=== PATIENT | male | born 1955 | race Caucasian/White ===

== ENCOUNTER → 2017-11-18 | Outpatient (CLI) | payer OTHER ==
[~2017-11-18] MED LIST: AMOX TR-K CLV1 EAC4 PO; ASPIR 8181 MG PO; CLONAZEPAM 1 MG1 M1 PO; COZAAR 50 MG TA50 M2 PO; CYMBALTA60 MG PO; DOLOPHINE HCL10 MG PO; FLOMAX0.4 MG PO; GLUCOPHAGE1000 MG PO; HYDROCODON-ACE1 EAC5 PO; HYDROCODONE-AP1 EA11 PO; HYTRIN 5 M5 MG/1 CAP PO; LINZESS145 MCG PO; LIPITOR40 MG PO; LYRICA 75 MG CA75 MG PO; NORCO 10-325 T1 EACH PO; NORCO 7.5-3251 EACH PO; NORVASC10 MG PO; OMEPRAZOLE20 M2 PO; OXYCODONE HCL E20 MG PO; OXYCONTIN20 M1 PO; OXYCONTIN30 MG PO; OXYCONTIN40 MG PO; SIMVASTATIN40 MG PO; ZOHYDRO ER10 M1 PO; eye drops OPHTHALMIC
--- NOTE | 2017-11-25 07:32 | PAINCON ---
[facility] [address] [place] [address] PAIN MANAGEMENT CONSULTATION Name: DIMITRIOS PAULINO Room: [facility] Morgan#: [id number] Admission: 11/18/17 Attend Phys: Beatrice Leonardo Discharge: Date of : 51 Report #: [id number] THIS REPORT FOR: //name// CC: FAM unknown Kev Dow DATE OF SERVICE: 11/18/2017 HISTORY OF PRESENT ILLNESS: The patient is a pleasant 62-year-old gentleman, typically treated for neuropathic pain, right upper extremity, RSD, requiring complex medication management. Last seen in the pain clinic on 09/23/2017. Continued spinal cord stimulator (IPG replaced last year). Continued OxyContin 30 mg b.i.d. (decreased from 40 mg b.i.d. last year). Continued hydrocodone 10/325 one tablet 3-4 times a day, limit 100 tablets for 30 days. Continued Lyrica 75 mg b.i.d. He returns today noting with cold weather, symptoms have gotten a little more problematic. We had talked about weaning hydrocodone down to 7.5/325 in the near future. We did get a note from [place] regarding multiple prescriber opiate releases. This was actually from [facility] where the patient does get his prescriptions filled. I believe they simply made a clerical error. 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 Jamaal Church, had written for an antibiotic. On that date, he did not, however, write for the OxyContin or hydrocodone. We did contact pharmacy and assured that this was in fact a clerical error. I also had a contact from the patient's insurance company requesting a wmpu-sx-wean consultation. I did speak with the physician on 10/21/2017. I talked about the fact that he is on an opiate consent to treat contract that we have reduced opiate agent over time and will in fact endeavor to continue weaning as able that the patient does get random urine drug screens and has complied with all of our opiate consent to treat contract issues. Does return to the pain clinic today. Notes about 75% relief with current medication. Pain impact score is a 36/70. We have renewed his opiate consent to treat contract today. Subjective pain score is 4 on a VAS. PHYSICAL EXAMINATION: GENERAL: Shows 5 feet 10 inches, 240 pounds gentleman, BMI is 30 kilograms per meter squared. VITAL SIGNS: Blood pressure 138/75, pulse 91, respirations 16. NEUROLOGIC: Alert and oriented to person, place and time, judged to be a reasonable historian. MUSCULOSKELETAL: Cervical range of motion is full. [place] [address] PAIN MANAGEMENT CONSULTATION Name: DIMITRIOS PAULINO Room: [facility] Morgan#: [id number] Admission: 11/18/17 Attend Phys: Beatrice Leonardo Discharge: Date of : 51 Report #: [id number] right hand, hyperpathia, allodynia. Range of motion is actually fairly good. Good strength in his shoulder. Burning dysesthesia in the arm. Gait is tandem. Spinal cord stimulator is in place. IPG site looks good. We reviewed the fact that opiate medications are being used to provide analgesia adequate to support activities of daily living, not attempting to achieve a specific pain score on the 0-10 Visual Analog Scale. The current opiate medications are providing sufficient analgesia to allow the patient to participate in activities of daily living. The patient is not exhibiting any aberrant behavior suggestive of drug diversion. The patient is not having any adverse reactions to medications. The patient is not suffering from daytime somnolence or mental acuity changes. The patient is managing opiate-induced constipation with appropriate oxnt-aef-vhiegiq agents and dietary considerations. The patient was counseled on concern for caution with operating a motor vehicle while using opiate medications. A physical exam was performed and the patient's functional status was evaluated. All patients with back pain were advised against the bed rest greater than 4 days and were advised to return to normal activities. Pain score assessment was noted and the treatment plan was reviewed with the patient. All current medications, both prescribed and OTC were reviewed and reconciled on the electronic medical record. Tobacco screening was accomplished and smoking cessation was advised when indicated. BMI was noted and diet/exercise modification was recommended for all patients following outside normal parameters. I reviewed with the patient today their responsibilities to safeguard prescription medications, reviewed their responsibility to utilize medications only as prescribed by the physician. They are to seek and receive pain medications only from 1 physician group ( [facility]). They are to use 1 pharmacy and keep the clinic informed if they change pharmacies. Their responsibilities include making followup visits in a timely fashion and to avoid abrupt discontinuation of medication usage. Their responsibilities further include bringing their medications (bottles from the pharmacy with residual pills) to the visit for possible confirmation of pill counts and the patient understands it is their responsibility to submit to random drug screens to ensure both that the medications prescribed are present, and that no other controlled substances are present. All prescriptions provided today were generated electronically. RECOMMENDATIONS: We did spend a prolonged visit with the patient today reviewing therapeutic options and interval health history. Reviewing opiate consent to treat contract. Reviewing a sxfv-fj-lwxn conversation and the [facility] multiple prescriber alert for opiate analgesics which was in fact a clerical error. Ultimately, I have elected to continue the patient on baseline medication, OxyContin 30 mg b.i.d. Continue hydrocodone 10/325 four a day for [facility] [address] [place] [address] PAIN MANAGEMENT CONSULTATION Name: DIMITRIOS PAULINO Room: [facility]#: [id number] Admission: 11/18/17 Attend Phys: Beatrice Leonardo Discharge: Date of : 51 Report #: [id number] another month or 2. As warm weather comes, we will try dropping that to 7.5 mg. Continue Lyrica 75 mg b.i.d. The patient was discharged in good and stable condition after a 25+ minute visit was spent counseling the patient. <ELECTRONICALLY SIGNED> By: Kev Dow DO 11/25/17 0732 [id number] [id number] Dow DO /nt
== END ==
LOC: M.PC 01:32
DX: G90.511 Complex regional pain syndrome I of right upper limb (principal); M79.2 Neuralgia and neuritis, unspecified; Z79.899 Other long term (current) drug therapy

== ENCOUNTER → 2017-12-16 | Outpatient (CLI) | payer OTHER ==
--- NOTE | 2017-12-17 09:41 | PAINCON ---
[facility] [address] [place] [address] PAIN MANAGEMENT CONSULTATION Name: DIMITRIOS PAULINO Room: [facility] Morgan#: [id number] Admission: 12/16/17 Attend Phys: Beatrice Leonardo Discharge: Date of : 51 Report #: [id number] THIS REPORT FOR: //name// CC: FAM unknown Kev Dow The patient is a 62-year-old gentleman typically treated for neuropathic pain and RSD, right upper extremity, requiring complex medication management. Last seen in pain clinic on 11/18/2017. Continued on OxyContin 30 mg b.i.d., decreased from 40 mg b.i.d. last year. Hydrocodone 10/325 one tablet 3-4 times a day, Lyrica 75 mg b.i.d. His spinal cord stimulator in place and this seems to help. The patient tells me his has been having increasing back pain. He has been stressed with this. Coincidentally, his right hand does seem to be swelling fairly dramatically. We talked about compressive garment, which he has tried in the past with really little efficacy. He has marked swelling of the hand and ongoing neuropathic pain. He notes otherwise current medications have been helpful. He rates his subjective pain score as 3 on a VAS. PHYSICAL EXAMINATION: Shows 5 feet 10 inches, 218 pounds gentleman, BMI is 31.4 kilograms per meter squared. Blood pressure 143/82, pulse 83, respirations 16. Does not use tobacco products. Cervical range of motion is good. Again, limited range of motion of the right wrist and significant swelling today, more so than usual. There is a little bit of hyperpathia and allodynia noted along with some erythema. We reviewed the fact that opiate medications are being used to provide analgesia adequate to support activities of daily living, not attempting to achieve a specific pain score on the 0-10 Visual Analog Scale. The current opiate medications are providing sufficient analgesia to allow the patient to participate in activities of daily living. The patient is not exhibiting any aberrant behavior suggestive of drug diversion. The patient is not having any adverse reactions to medications. The patient is not suffering from daytime somnolence or mental acuity changes. The patient is managing opiate-induced constipation with appropriate qrlg-joi-elmkllg agents and dietary considerations. The patient was counseled on concern for caution with operating a motor vehicle while using opiate medications. A physical exam was performed and the patient's functional status was evaluated. All patients with back pain were advised against the bed rest greater than 4 days and were advised to return to normal activities. Pain score assessment was [address] [place] [address] PAIN MANAGEMENT CONSULTATION Name: DIMITRIOS PAULINO Room: [facility] Eddie#: [id number] Admission: 12/16/17 Attend Phys: Beatrice Leonardo Discharge: Date of : 51 Report #: [id number] noted and the treatment plan was reviewed with the patient. All current medications, both prescribed and OTC were reviewed and reconciled on the electronic medical record. Tobacco screening was accomplished and smoking cessation was advised when indicated. BMI was noted and diet/exercise modification was recommended for all patients following outside normal parameters. I reviewed with the patient today their responsibilities to safeguard prescription medications, reviewed their responsibility to utilize medications only as prescribed by the physician. They are to seek and receive pain medications only from 1 physician group ( [facility]). They are to use 1 pharmacy and keep the clinic informed if they change pharmacies. Their responsibilities include making followup visits in a timely fashion and to avoid abrupt discontinuation of medication usage. Their responsibilities further include bringing their medications (bottles from the pharmacy with residual pills) to the visit for possible confirmation of pill counts and the patient understands it is their responsibility to submit to random drug screens to ensure both that the medications prescribed are present, and that no other controlled substances are present. All prescriptions provided today were generated electronically. 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 Spinal cord stimulator in place. RECOMMENDATION: Continue OxyContin 30 mg b.i.d. We will try lowering hydrocodone to 7.5/325 product. Limit 100 tablets for 30 days. I have taken the liberty of writing for 2 months of current medication. Follow up at that time. We may have to increase his hydrocodone if needed. Hopefully, we can continue to wean as able. <ELECTRONICALLY SIGNED> By: Kev Dow DO 12/17/17 0941 [id number] [id number] Dow DO /nt
== END ==
LOC: M.PC 01:48
DX: M79.2 Neuralgia and neuritis, unspecified (principal); Z79.899 Other long term (current) drug therapy

== ENCOUNTER → 2018-01-13 | Outpatient (CLI) | payer OTHER ==
--- NOTE | 2018-01-14 06:52 | PAINCON ---
[facility] [address] [place] [address] PAIN MANAGEMENT CONSULTATION Name: DIMITRIOS PAULINO Room: [facility] Eddie#: [id number] Admission: 01/13/18 Attend Phys: Beatrice Leonardo Discharge: Date of : 51 Report #: [id number] THIS REPORT FOR: //name// CC: FAM unknown Kev Dow The patient is a very pleasant 62-year-old gentleman, being treated for right upper extremity RSD neuropathic pain requiring complex medication management. Last seen in pain clinic on 12/16/2017. We weaned down to OxyContin 30 mg b.i.d. with hydrocodone 10/325 one tablet 3-4 times a day. He came to us on OxyContin 40 b.i.d. He has a spinal cord stimulator in place which helps. He takes Lyrica 75 mg b.i.d. He had dramatic edema in the right hand in the last visit. He returns to pain clinic today. He thinks the right hand swelling is getting better and indeed it is marginally improved, still has a significant swelling in the right hand. He remains quite functionally active. 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 PHYSICAL EXAMINATION: Otherwise unchanged. GENERAL: Pleasant 62-year-old gentleman, 5 feet 10 inches, 220 pounds, BMI 31 kilograms per meter squared. VITAL SIGNS: Blood pressure 142/80, pulse 89, respirations 16. NEUROLOGIC: Alert and oriented to person, place and time, judged to be a reasonable historian. EXTREMITIES: Cervical range of motion is good. Again, swelling in the right hand and forearm, some skin changes, though mild. Hyperpathia, allodynia noted from about the elbow down. We reviewed the fact that opiate medications are being used to provide analgesia adequate to support activities of daily living, not attempting to achieve a specific pain score on the 0-10 Visual Analog Scale. The current opiate medications are providing sufficient analgesia to allow the patient to participate in activities of daily living. The patient is not exhibiting any aberrant behavior suggestive of drug diversion. The patient is not having any adverse reactions to medications. The patient is not suffering from daytime somnolence or mental acuity changes. The patient is managing opiate-induced constipation with appropriate ksfk-odo-oukzisc agents and dietary considerations. The patient was counseled on concern for caution with operating a motor vehicle while using opiate medications. A physical exam was performed and the patient's functional status was evaluated. All patients with back pain were advised against the bed rest greater than 4 days and were advised to return to normal activities. Pain score assessment was noted and the treatment plan was reviewed with the patient. All current medications, both prescribed and OTC were reviewed and reconciled on the electronic medical record. Tobacco screening was accomplished and smoking cessation was advised when indicated. BMI was noted and diet/exercise modification was recommended for [place] [address] PAIN MANAGEMENT CONSULTATION Name: DIMITRIOS PAULINO Room: [facility] Morgan#: [id number] Admission: 01/13/18 Attend Phys: Beatrice Leonardo Discharge: Date of : 51 Report #: [id number] parameters. I reviewed with the patient today their responsibilities to safeguard prescription medications, reviewed their responsibility to utilize medications only as prescribed by the physician. They are to seek and receive pain medications only from 1 physician group ( [facility]). They are to use 1 pharmacy and keep the clinic informed if they change pharmacies. Their responsibilities include making followup visits in a timely fashion and to avoid abrupt discontinuation of medication usage. Their responsibilities further include bringing their medications (bottles from the pharmacy with residual pills) to the visit for possible confirmation of pill counts and the patient understands it is their responsibility to submit to random drug screens to ensure both that the medications prescribed are present, and that no other controlled substances are present. All prescriptions provided today were generated electronically. ASSESSMENT: Neuropathic pain requiring complex medication management, affecting right upper extremity. RECOMMENDATION: Continue baseline medication unchanged, OxyContin 30 mg b.i.d., hydrocodone 10/325 one tablet 3-4 times a day, limit 100 tablets for 30 days. Follow up in 4-5 weeks for reevaluation. <ELECTRONICALLY SIGNED> By: Kev Dow DO 01/14/18 0652 1342 [id number] Dow DO /nt
== END ==
LOC: M.PC 02:40
DX: M79.2 Neuralgia and neuritis, unspecified (principal); Z79.899 Other long term (current) drug therapy

== ENCOUNTER → 2018-02-17 | Outpatient (CLI) | payer OTHER ==
--- NOTE | 2018-02-18 07:19 | PAINCON ---
[facility] [address] [place] [address] PAIN MANAGEMENT CONSULTATION Name: DIMITRIOS PAULINO Room: [facility] Morgan#: [id number] Admission: 02/17/18 Attend Phys: Beatrice Leonardo Discharge: Date of : 51 Report #: [id number] THIS REPORT FOR: //name// CC: FAM unknown Salvador Dow DATE OF SERVICE: 02/17/2018 The patient is a very pleasant 62-year-old gentleman typically treated for RSD, right upper extremity. I took over the patient's care on or around 07/2015. He had been on higher doses of opiate. We have gradually weaned down to some degree. He had a spinal cord stimulator in place, which helps with chronic RSD pain, right upper extremity. When the patient came to my practice, he was taking OxyContin 40 mg b.i.d. and hydrocodone 10/325 three a day equating to approximately 150 mEq of morphine a day. We have weaned down to OxyContin 30 mg b.i.d. and hydrocodone 7.5/325 one tablet 3-4 times a day equating to about 110 mg of morphine a day. He uses Lyrica 75 mg b.i.d. with efficacy. He has a spinal cord stimulator, which helps as well. He has chronic neuropathic pain right upper extremity, has a significant swelling in the right arm, which seems to be getting worse over the past year. It is a little worse today than it was at last visit. About 2 visits ago, it was quite profound. Today he shows perhaps +2 edema from about the forearm down. Does have some hyperpathia and allodynia in the right forearm. No adenopathy is noted axillary. PHYSICAL EXAMINATION: Unchanged 5 feet 10 inches, 216-pound gentleman, BMI is 31 kilograms per meter squared. Blood pressure 150/80, pulse 82, respirations 16. Alert and oriented to person, place and time. He is a reasonable historian. CN 2-12 intact. Cervical ROM is good, bilat shoulder ROM is full. Good ROM right elbow with decreased ROM right wrist and hand. +2 edema right distal forearm and hand. Remaining physical exam is unremarkable; tandem gait. A Long discussion with the patient today about therapeutic options. I did discuss with the patient that I had met with his case technician and I was in agreement with trying to continue to wean his opiate. We talked about opiate risk categories stratified from 0-50, 50-90 and +90 mEq of morphine a day. Biggest concern is that over 90 mg of morphine a day, there is an increased risk of due to multiple causes. We would like to get the patient certainly under this level and perhaps even lower. The patient was open to continuing weaning his opioid. He does feel that the spinal cord stimulator is helping. Feels Lyrica is efficacious as well. We elected to increase Lyrica from b.i.d. to t.i.d. (actually 2 in the morning, 1 at night). We will try asymmetric dosing of OxyContin: OxyContin 30 mg in the morning and decreasing to 20 mg at bedtime. Continue hydrocodone 7.5/325 one tablet 3-4 times a day, limit 100 tablets for 30 days. This will decrease his [facility] [address] [place] [address] PAIN MANAGEMENT CONSULTATION Name: DIMITRIOS PAULINO Room: [facility] Morgan#: [id number] Admission: 02/17/18 Attend Phys: Beatrice Leonardo Discharge: Date of : 51 Report #: [id number] overall opiate load to approximately 95 mg of morphine. I did tell the patient that I am leaving the practice area, moving at the end of March. I will see him next month to evaluate efficacy of medication change. I did tell him he needs to contact his case technician, Salvador Ojeda RN regarding finding another willing pain management physician to manage his care. The patient was distressed having to find another physician. I assured him that his case management person should be able to assist with this. The patient was seen for prolonged visit, greater than 25 minutes were spent counseling the patient. Unfortunately, due to a clerical error, we did not get a buccal swab today. We will get a buccal swab at next visit. He is exhibiting no aberrant behavior suggestive for drug diversion, I will obtain a random drug test at next visit simply to comply with opiate consent to treat contract. It has been about 7 months since our last random drug screen. Discharged in good and stable condition. <ELECTRONICALLY SIGNED> By: Kev Dow DO 02/18/18 0719 1435 Charo Dow DO /nt
== END ==
LOC: M.PC 03:37
DX: G89.29 Other chronic pain (principal); M79.2 Neuralgia and neuritis, unspecified; M79.631 Pain in right forearm

== ENCOUNTER → 2018-03-17 | Outpatient (CLI) | payer OTHER ==
--- NOTE | 2018-03-18 06:59 | PAINCON ---
[facility] [address] [place] [address] PAIN MANAGEMENT CONSULTATION Name: DIMITRIOS PAULINO Room: [facility] Morgan#: [id number] Admission: 03/17/18 Attend Phys: Beatrice Leonardo Discharge: Date of : 51 Report #: [id number] THIS REPORT FOR: //name// CC: FAM unknown Physician staff Kev Dow The patient is a very pleasant 62-year-old gentleman being treated for neuropathic pain, right upper extremity. He is a work comp patient managed by [employer]. His case monitor is Salvador Ojeda RN. Contact number is [phone]. The patient returns to pain clinic today, ongoing right upper extremity pain continues to be problematic, though well controlled with current medication. We have been trying to wean opiate analgesics over time. He has a spinal cord stimulator, generator was replaced late last year. Returns to pain clinic today, noting pain is about a 5 on a VAS. He has had some family issues which have caused increasing stress. 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 He has a [id number] and son who have managed the farm down there. Apparently, the son is moving to [place]. While that is a pleasant prospect for the patient, he now has to determine what to do with his horses and the farm. Notes he has had a little lack of sleep, which tends to increase his pain. Overall, he remains fairly functional. He does a great deal of caretaking for his young grandson who is preschool age. Apparently has a speech pathology issue and the patient has been very involved to taking him to his speech pathologist. Today physical exam shows a 5 feet 10 inches, 218 pound gentleman, BMI is 31.7 kilograms per meter squared. Blood pressure is 144/85, pulse 73, respirations 18. Subjective pain score is 5 on a VAS. Cervical range of motion is full. Still has some edema about the right upper extremity. It is erythematous and +1 to 2 edema is noted. Hyperpathia allodynia is a little bit less today in the hand, present in the forearm. Otherwise, gait is tandem. He is alert and oriented to person, place, and time, judged to be a reasonable historian. No obvious skin defects. We reviewed the fact that opiate medications are being used to provide analgesia adequate to support activities of daily living, not attempting to achieve a specific pain score on the 0-10 Visual Analog Scale. The current opiate medications are providing sufficient analgesia to allow the patient to participate in activities of daily living. The patient is not exhibiting any aberrant behavior suggestive of drug diversion. The patient is not having any adverse reactions to medications. The patient is not suffering from daytime somnolence or mental acuity changes. The patient is managing opiate-induced constipation with appropriate rfli-egn-[id number] [place] [address] PAIN MANAGEMENT CONSULTATION Name: DIMITRIOS PAULINO Room: [facility] Morgan#: [id number] Admission: 03/17/18 Attend Phys: Beatrice Leonardo Discharge: Date of : 51 Report #: [id number] considerations. The patient was counseled on concern for caution with operating a motor vehicle while using opiate medications. A physical exam was performed and the patient's functional status was evaluated. All patients with back pain were advised against the bed rest greater than 4 days and were advised to return to normal activities. Pain score assessment was noted and the treatment plan was reviewed with the patient. All current medications, both prescribed and OTC were reviewed and reconciled on the electronic medical record. Tobacco screening was accomplished and smoking cessation was advised when indicated. BMI was noted and diet/exercise modification was recommended for all patients following outside normal parameters. I reviewed with the patient today their responsibilities to safeguard prescription medications, reviewed their responsibility to utilize medications only as prescribed by the physician. They are to seek and receive pain medications only from 1 physician group ( [facility]). They are to use 1 pharmacy and keep the clinic informed if they change pharmacies. Their responsibilities include making followup visits in a timely fashion and to avoid abrupt discontinuation of medication usage. Their responsibilities further include bringing their medications (bottles from the pharmacy with residual pills) to the visit for possible confirmation of pill counts and the patient understands it is their responsibility to submit to random drug screens to ensure both that the medications prescribed are present, and that no other controlled substances are present. All prescriptions provided today were generated electronically. ASSESSMENT & PLAN: Chronic neuropathic pain, right upper extremity requiring complex medication management in a patient currently taking Lyrica 75 mg 1 in the morning, increased from 1-2 at bedtime. Continue to take OxyContin 30 mg b.i.d. (decreased from 40 mg b.i.d.) Today, we have elected to try an asymmetric dosing, continue OxyContin 30 mg in the morning, decreasing evening dose to 20 mg, continue hydrocodone 7.5/325, one tablet 3-4 times a day. This will bring him down to approximately 95-100 mEq of morphine a day. This remains just above the supratherapeutic cut off but significantly lower than when the patient came to me. Given that I am leaving the treatment area, we will have the patient contact his case monitor to find another pain physician on the [employer] insurance that can manage his ongoing chronic pain concerns. Today, we did get a buccal drug swab. No aberrant behavior suggestive of drug diversion, simply complying with opiate consent to treat contract. In total, approximately 30 minutes was spent with the patient today, [place] [address] PAIN MANAGEMENT CONSULTATION Name: DIMITRIOS PAULINO Room: [facility] Eddie#: [id number] Admission: 03/17/18 Attend Phys: Beatrice Leonardo Discharge: Date of : 51 Report #: [id number] therapeutic options, discussing risk profiles for opiate analgesics, discussing therapeutic options moving forward. Discharged in good and stable condition. <ELECTRONICALLY SIGNED> By: Kev Dow DO 03/18/18 0659 [id number] 2222Kev Dow DO /nt
== END ==
LOC: M.PC 00:18
DX: M79.2 Neuralgia and neuritis, unspecified (principal); G89.29 Other chronic pain; M79.621 Pain in right upper arm; Z79.899 Other long term (current) drug therapy

== ENCOUNTER → 2018-05-11 | Outpatient (CLI) | payer OTHER ==
--- NOTE | 2018-05-21 08:37 | PAINCON ---
[address] [address] PAIN MANAGEMENT CONSULTATION Name: DIMITRIOS PAULINO Room: [facility] [place]#: [id number] Admission: 05/11/18 Attend Phys: Roselia Hughes MD Discharge: Date of : 51 Report #: [id number] THIS REPORT FOR: //name// CC: CORRINE Hughes DATE OF SERVICE: 05/11/2018 CHIEF COMPLAINT: Here for medication renewal. HISTORY OF PRESENT ILLNESS: The patient is a 62-year-old gentleman who has been followed in the pain clinic by Dr. Kev Dow. This is my first time visiting with the patient. He has a long history of pain involving his right arm and some involvement of his right leg. 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 His job required a significant amount of paperwork. He oftentimes stapled the paperwork together. After a while, he noticed some pain developed in his right hand. Also noted noticed swelling, increased pain to light touch, color changes, nail changes and edema in his hand. After numerous physician visits to numerous doctors it was decided that the patient has reflex sympathetic dystrophy. He has undergone treatment. He has had a sympathectomy. Pain persisted. The patient underwent spinal cord stimulator which he has at this point. Has had it for quite some time. He has undergone for battery changes. He moved to the [facility] to be close to family. He has a grandson who has some challenges. He likes being near him. A few days ago his youngest son moved to [place] from [place] as well, that increased stress has made his pain slightly worse. He has tried a number of modalities to help decrease the swelling in his right arm. Has tried compression garments with no long-term benefit. The patient states that he does have some problem with his right rotator cuff. An injection into his right shoulder help with the pain. About a month and a half later, he noted some worsening of his vision. He was seen by his eye doctor and was told that the steroids may have precipitated a rapid change in his vision and he developed cataracts. He has had cataract replacements. Does have diabetes, states his blood sugars generally are in about the 120 range. ALLERGIES: No known drug allergies. CURRENT MEDICATIONS: Norvasc 10 mg daily, ____/potassium, aspirin 81 mg, Cymbalta 60 mg, hydrocodone 7.5/325, losartan 50 mg, metformin 1000 mg, and oxycodone HCL ER 20 mg b.i.d., Lyrica 75 mg, Zocor 40 mg, Flomax 0.4 mg, eyedrops. PAST MEDICAL HISTORY: 1. Reflex sympathetic dystrophy involving the right upper extremity, some [facility] [address] [place] [address] PAIN MANAGEMENT CONSULTATION Name: DIMITRIOS PAULINO Room: [facility] Morgan#: [id number] Admission: 05/11/18 Attend Phys: Roselia Hughes MD Discharge: Date of : 51 Report #: [id number] involvement in the right lower leg as well. 2. Hypertension. 3. Diabetes. 4. Hypercholesterolemia disability secondary to the reflux sympathetic dystrophy, receiving workmen's compensation. 5. Benign prosthetic hypertrophy. Reflex sympathetic dystrophy involving the right upper extremity with swelling as well as some movement down involving the right leg on the right side. PAST SURGICAL HISTORY: Spinal cord implant in 2000, hernia repair 05/2012, revision of implants in 2007, lap band surgery in 2012. REVIEW OF SYSTEMS: Headaches, wears glasses, history of cataracts, cataract removed, depression, insulin/diabetes. PAIN CLINIC ASSESSMENT: 1. History of osteoarthritis in the right shoulder. 2. Height 5 feet 10 inches, weight 214 pounds, BMI is 30. 3. Vital signs: Blood pressure 153/86, heart rate 86, respiratory rate 16, room air saturation 95%, temperature 97.6. 4. Pain intensity /10. Has increased because of stress of his younger son and changes in weather. 5. Fall risk. The patient has not fallen in the last 3 months. 6. Blood thinner. The patient is on a blood thinning medication. 7. History of hypertension. The patient is being treated for hypertension. 8. Opioid therapy greater than 6 weeks. The patient is on an opioid regimen receive his medications on a regular basis. 9. Risk assessment tool, low risk for opioid use. 10. Functional assessment tool. 11. Recreational drug use. The patient denies use of recreational drugs. 12. Tobacco: The patient denies use of tobacco. 13. Alcohol: The patient denies use of alcoholic beverages. PHYSICAL EXAMINATION: GENERAL: The patient is a well-developed, well-nourished white male. Appears as stated age. He is alert and oriented x3. His affect is appropriate. Insight is good. HEAD, EYES, EARS, NOSE, AND THROAT: Normocephalic, atraumatic. Extraocular eye muscles intact. Sclerae are nonicteric. Hearing within normal limits. Mucous membranes are moist. Sclerae is nonicteric. Hearing, is within normal limits. NECK: Good range of motion without bruits or JVD. HEART: Regular rate. S1, S2. LUNGS: Clear to auscultation. Upper extremity muscle strength is judged to be 5/5 for the major muscle groups. Deep tendon reflexes are +2 at the biceps bilaterally. Assistant Infant Toddler Teacher strength is 5/5. The patient has a well-healed scar in the [address] [address] PAIN MANAGEMENT CONSULTATION Name: DIMITRIOS PAULINO Room: [facility].#: [id number] Admission: 05/11/18 Attend Phys: Roselia Hughes MD Discharge: Date of : 51 Report #: [id number] left hip area above his belt. This is the area of the generator for the spinal cord stimulator. The patient has some pain and discomfort down in the right leg. Right arm shows swelling, which is significant with loss of ability to see the knuckles in his right hand. There is no swelling. No significant change in hair. The patient has noted some increased discomfort with light touch. Lower extremity muscle strength is judged to be 5/5 for the major muscle groups. Deep tendon reflexes are +2 at the knees and ankles bilaterally. The patient is able to walk on his toes, stand on his heels without problems. IMPRESSION: Reflex sympathetic dystrophy involving the right upper extremity with swelling as well as some movement down involving the right leg on the right side. RECOMMENDATIONS: We discussed treatment options with the patient. We will continue with his current medical regimen of Cymbalta, Lyrica, oxycodone and hydrocodone. A script for these medications have been written. The patient will call us if he has any problems with his medications. We would like to thank you for letting us to participate in his care. We hope he continues to improve. <ELECTRONICALLY SIGNED> By: Roselia Hughes MD 05/21/18 0837 0910 1001N. Joe Hughes MD /PMT
== END ==
LOC: M.PC 04:56
DX: G90.511 Complex regional pain syndrome I of right upper limb (principal); Z79.899 Other long term (current) drug therapy

== ENCOUNTER → 2018-07-13 | Outpatient (CLI) | payer OTHER ==
--- NOTE | 2018-07-19 10:00 | PAINCON ---
[address] [address] PAIN MANAGEMENT CONSULTATION Name: DIMITRIOS PAULINO Room: [facility] Morgan#: [id number] Admission: 07/13/18 Attend Phys: Roselia Hughes MD Discharge: Date of : 51 Report #: [id number] THIS REPORT FOR: //name// CC: CORRINE Hughes DATE OF SERVICE: 07/13/2018 CHIEF COMPLIANT: Here for medication renewal. HISTORY OF PRESENT ILLNESS: The patient is a 62-year-old gentleman, who has been followed in the pain clinic. He has a history of pain involving his right arm. He also has some involvement in his right leg. 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 His job required a significant amount of paperwork. The patient used a stapler on a regular basis as part of his job. Constant pounding using the stapler caused some swelling in his right arm. He has continued to have pain and discomfort. He suffers from reflex sympathetic dystrophy/chronic regional pain syndrome. He has also undergone a sympathectomy. His pain persists in spite of all this. He has a spinal cord stimulator. He has had it for some time. He moved to [place] to be closer to family. Has a grandson, who faces challenges. His youngest son moved to [place]. Has noted some increased stress because of those changes. Continues to note swelling in his right arm. He has tried compression garments. The patient states that he has seen a number of physicians. He has gone to a chiropractor. He has undergone colonoscopy. Overall, he is doing significant amounts of activities regarding his health. He would like to have his medications renewed at this time. PAST MEDICAL HISTORY: Hypercholesterolemia. ALLERGIES: No known drug allergies. CURRENT MEDICATIONS: Norvasc 10 mg daily, potassium, aspirin 81 mg, Cymbalta 60 mg, hydrocodone 7.5/325, losartan 50 mg, metformin 1000 mg, oxycodone ER 20 mg b.i.d., Lyrica at 75 mg, Zocor 40 mg, Flomax 0.4 mg, and eye drops. PAIN CLINIC ASSESSMENT/PQRS: 1. History of osteoarthritis in the right upper shoulder. 2. Height 5 feet 10 inches, weight 214 pounds, BMI is 30.6. 3. VITAL SIGNS: Blood pressure 116/76, heart rate 95, respiratory rate 16, room air saturation 95%, and temperature 97.8. 4. Pain intensity 4/10. 5. Fall risk. The patient has not fallen in the last 3 months. 6. Blood thinner. The patient is not on [place] [address] PAIN MANAGEMENT CONSULTATION Name: DIMITRIOS PAULINO Room: [facility] Eddie#: [id number] Admission: 07/13/18 Attend Phys: Roselia Hughes MD Discharge: Date of : 51 Report #: [id number] 7. Hypertension. The patient is being treated for hypertension. 8. Opioid therapy greater than 6 weeks. The patient receives medications through the Pain Clinic. 9. Risk assessment tool, low for use of opioids. 10. Functional assessment tool. 11. Recreational drug use. Denies use of recreational drugs. 12. Tobacco: The patient denies use of tobacco. 13. Alcohol: The patient denies frequent use of alcoholic beverages. PHYSICAL EXAMINATION: GENERAL: The patient is a well-developed, well-nourished white male. Appears his stated age. He is alert and oriented x 3. His affect is appropriate. Speech is fluent. HEENT: Normocephalic, atraumatic. Extraocular eye muscles intact. Sclerae nonicteric. Hearing is within normal limits. Mucous membranes are moist. Sclerae nonicteric. NECK: Good range of motion without bruits or JVD. HEART: Regular rate. S1, S2. LUNGS: Clear to auscultation without rhonchi or rales. EXTREMITIES: Upper extremity muscle strains on the left judged to be 5/5 for the major muscle groups and 4/5 for the right side. The patient has a glove in place. Has some strips for support on his forearm and down and around his fingers. The patient has a well-healed scar in the left area above his hip belt. This is the area for the spinal cord stimulator. The patient has some pain and discomfort down into his right leg. Notes right arm pain with swelling and significant a bit loss of his ability to make a fist. The knuckles are obliterated. There is swelling. No significant hair changes in this area. Increased discomfort with light touch. Lower extremity muscle strength judged to be 5/5 for the major muscle groups. Deep tendon reflexes +2 at the knees bilaterally. The patient is able to walk on toes and stand on heels without problems. IMPRESSION: 1. Reflex sympathetic dystrophy/complex regional pain syndrome involving the right upper extremity with swelling as well as some lumbar radicular pain down into his right leg. 2. Hypertension. 3. Diabetes. RECOMMENDATIONS: We discussed treatment options with the patient. A script for his medications has been written. He feels that things are going reasonably well. He does not have any problems with his medications. He is aware that these medications can cause some problems with chronic use. He feels that they [facility] [address] [place] [address] PAIN MANAGEMENT CONSULTATION Name: DIMITRIOS PAULINO Room: [facility] Morgan#: [id number] Admission: 07/13/18 Attend Phys: Roselia Hughes MD Discharge: Date of : 51 Report #: [id number] are beneficial and would like to continue their use. We would like to thank you for letting us participate in his care. We hope he continues to improve. <ELECTRONICALLY SIGNED> By: Roselia Hughes MD 07/19/18 1000 [id number]. Joe Hughes MD /nt
== END ==
LOC: M.PC 07-06 13:30
DX: G90.59 Complex regional pain syndrome I of other specified site (principal); I10 Essential (primary) hypertension; E11.9 Type 2 diabetes mellitus without complications; Z79.899 Other long term (current) drug therapy

== ENCOUNTER → 2018-09-14 | Outpatient (CLI) | payer OTHER ==
--- NOTE | ~2018-09-14 | PAINCON ---
[address] [address] PAIN MANAGEMENT CONSULTATION Name: DIMITRIOS PAULINO Room: [facility] Morgan#: [id number] Admission: 09/14/18 Attend Phys: Roselia Hughes MD Discharge: Date of : 51 Report #: [id number] THIS REPORT FOR: //name// CC: CORRINE physician/PCP Roselia Hughes DATE OF SERVICE: 09/14/2018 CHIEF COMPLAINT: Here for medication renewal. HISTORY: The patient is a 62-year-old gentleman who has been followed in the Pain Clinic. He has a history of pain involving his right arm. He has had involvement in his right leg as well. 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 As a result of that, he noticed some worsening of pain involving his right hand. He continue to have some swelling in his right arm. He has pain and discomfort, which continues to be problematic and has helped with his current medications of complex medical management nature. He suffers from reflex sympathetic dystrophy/chronic regional pain syndrome. He has had a spinal cord stimulator, he has had it for some time. Moved to [place] to be close with his family. He has a grandson who faces numerous challenges. His youngest son moved to [place]. He has had some increased stress because of changes in his life. He continues to have swelling in his right arm. He does and has used compression garments in the past. He has been seen by a number of physicians in the past. He has been seen by a chiropractor. Overall, things are going reasonably well involving his right arm. Continues to have numbness, which he describes as better. He has finished with chiropractic treatment as well as physical therapy. He rates his pain as a 3/10. ALLERGIES: No known drug allergies. MEDICATIONS: Norvasc 10 mg daily, potassium, aspirin 81 mg, Cymbalta 60 mg, hydrocodone 7.5/325, losartan 50 mg, metformin 1000 mg, oxycodone ER 20 mg b.i.d., Lyrica 75 mg, Zocor 40 mg, Flomax 0.4 mg, eyedrops. PAIN CLINIC ASSESSMENT/PQRS: 1. The patient can have some osteoarthritic changes involving his right upper shoulder. The patient is not being treated for rheumatoid arthritis. 2. Height 5 feet 10 inches, weight 210 pounds, BMI is 30. 3. Vital signs: Blood pressure 143/78, heart rate 113, respiratory rate 18, room air saturation 94%, temperature 98.5. 4. Pain intensity 3/10. 5. Fall history. The patient has not fallen in the last 3 months. 6. Blood thinner. The patient is not on a blood thinning medication. 7. Hypertension. The patient is [place] [address] PAIN MANAGEMENT CONSULTATION Name: DIMITRIOS PAULINO [id number] Admission: 09/14/18 Attend Phys: Roselia Hughes MD Discharge: Date of : 51 Report #: [id number] 8. Opioids greater than 6 weeks. The [facility]. 8. Risk assessment tool, low for use of opioid medication. 9. Functional assessment tool. 10. Recreational drug use. The patient denies use of recreational drugs. 11. Tobacco: The patient denies use of tobacco. 12. Alcohol: The patient denies use of alcoholic beverages. PHYSICAL EXAMINATION: GENERAL: The patient is a well-developed, well-nourished white male. Appears his stated age. He is alert and oriented x 3. His affect is appropriate. Speech is fluent. HEENT: Normocephalic, atraumatic. Extraocular eye muscles intact. Sclerae nonicteric. Hearing is within normal limits. Mucous membranes moist. Sclerae nonicteric. NECK: With good range of motion without bruits or JVD. HEART: Regular rate. S1, S2. LUNGS: Clear to auscultation without rales or rhonchi. EXTREMITIES: Upper extremity muscle strength of the left judged to be 5/5 in the major muscle groups and 4/5 for the right. The patient has a glove in place. He has some support for his forearm and down around his fingers. He has a well-healed scar in the left area above his hip belt. This is the area of the spinal cord stimulator. He has some pain and discomfort involving his right leg. His right arm has some swelling and decrease his ability to make a fist. Knuckles are somewhat obliterated, this causes swelling. No significant change in increased discomfort to light touch, muscle strength judged to be 5/5 for the major muscle groups. Deep tendon reflexes are +2 at the knees bilaterally. The patient is able to walk on his toes and stand on his heels without problems. IMPRESSION: 1. Reflex sympathetic dystrophy/complex regional pain syndrome involving the right upper extremity with swelling and some lumbar radicular pain in his right lower leg. 1. Hypertension. 2. Diabetes. RECOMMENDATIONS: We discussed treatment options with the patient. At this juncture, we will continue with his current medications. Risks and benefits of opioid medications were again discussed. They can be beneficial, but can be problematic and the patient can develop dependence as well as decreased efficacy secondary to development of tolerance. The patient is aware of this. He feels his medications are working reasonably well. He would like to continue with the medications. A script for his medications has been rewritten. Overall, [place] [address] PAIN MANAGEMENT CONSULTATION Name: DIMITRIOS PAULINO Room: [facility]#: [id number] Admission: 09/14/18 Attend Phys: Roselia Hughes MD Discharge: Date of : 51 Report #: [id number] feels 50% improvement. His pain is a result of use of his current medical regimen. By: [id number]. Joe Hughes MD /nt
== END ==
LOC: M.PC 09-07 09:00
DX: M54.16 Radiculopathy, lumbar region (principal); G90.511 Complex regional pain syndrome I of right upper limb; I10 Essential (primary) hypertension; E11.9 Type 2 diabetes mellitus without complications; Z79.899 Other long term (current) drug therapy

== ENCOUNTER → 2018-11-09 | Outpatient (CLI) | payer OTHER ==
--- NOTE | ~2018-11-09 | PAINCON ---
[address] [address] PAIN MANAGEMENT CONSULTATION Name: DIMITRIOS PAULINO [facility]#: [id number] Admission: 11/09/18 Attend Phys: Roselia Hughes MD Discharge: Date of : 51 Report #: [id number] THIS REPORT FOR: //name// CC: CORRINE physician/PCP Roselia Hughes DATE OF SERVICE: 11/09/2018 CHIEF COMPLAINT: Here for medication renewal. 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 As a result of stapling paperwork, he developed pain. He developed reflex sympathetic dystrophy/complex regional pain syndrome in his right arm. He has undergone spinal cord stimulation. He moved back [place] to [place] be close to his family. Continues to work with his grandson who has numerous challenges. His young son has moved to [place]. Wear some compression garments on the right hand in the past. He has been seen by a number of physicians. He has been seen by a chiropractor. Overall, he feels that his current medical regimen is helpful and he has returned today for renewal of his medications. ALLERGIES: No known drug allergies. CURRENT MEDICATIONS: Norvasc 10 mg daily, potassium, aspirin 81 mg, Cymbalta 60 mg, hydrocodone 7.5 mg, losartan 50 mg, metformin 1000 mg, oxycodone ER 20 mg b.i.d., Lyrica 75 mg, Zocor 40 mg, Flonase 0.4 mg eye drops. PAIN CLINIC ASSESSMENT/PQRS: 1. The patient does have some arthritic changes involving his right upper shoulder. He is not being treated for rheumatoid arthritis. 2. Height 5 feet 10 inches, weight 212 pounds. BMI 30.7. 3. Vital signs: Blood pressure 149/86, heart rate 99, respiratory rate 16, room air saturation 95%, temperature 97.6. 4. Pain intensity 12/12. 5. Fall history: The patient has not fallen in the last 3 months. 6. Blood thinner. The patient is not on a blood thinning medication. 7. Hypertension. The patient is being treated for hypertension. 8. Opioid greater than 6 weeks. The patient received his medications through the pain clinic. 9. Risk assessment tool, low for opioid use. 10. Functional assessment tool. 11. Recreational drug use. The patient denies use of recreational drugs. 12. Tobacco: The patient denies use of tobacco. 13. Alcohol: The patient [place] [address] PAIN MANAGEMENT CONSULTATION Name: DIMITRIOS PAULINO [facility] Morgan#: [id number] Admission: 11/09/18 Attend Phys: Roselia Hughes MD Discharge: Date of : 53 Report #: [id number] PHYSICAL EXAMINATION: GENERAL: The patient is a well-developed, well-nourished white male. Appears his stated age. He is alert and oriented x 3. His affect is appropriate. Speech is fluent. HEENT: Normocephalic, atraumatic. Extraocular eye muscles intact. Sclerae nonicteric. Hearing is within normal limits. Mucous membranes are moist. Sclerae nonicteric. NECK: With good range of motion without bruits or JVD. HEART: Regular rate. S1, S2. LUNGS: Clear to auscultation without rhonchi or rales. EXTREMITIES: Upper extremity muscle strength is judged to be 5/5 on the left side and 4.4/5 on the right. The patient often times wears a glove in place. Has a well-healed scar in the area of the spinal cord stimulator. Knuckles are somewhat obliterated causes swelling in his hand. Increased discomfort with light touch. IMPRESSION: 1. Reflex sympathetic dystrophy/complex regional pain syndrome involving the right upper extremity with swelling as well as a history of lumbar radicular pain in his right lower leg. 2. Hypertension. 3. Diabetes. RECOMMENDATIONS: We discussed treatment options with the patient. Risks and benefits of medications such as hydrocodone were discussed. We explained that these medications can cause dependency. The patient feels that the medications are helpful. The patient did have some right arm numbness. He has undergone workup for left arm numbness and has been cleared. Has had some headache. Has a medical regimen, which he feels is working relatively well. He would like to continue it. He would like to have his medications renewed. A script for his medications of oxycodone ER 20 mg 1 p.o. b.i.d., hydrocodone 7.5 mg 1 p.o. q.4-6h., total of 100 tablets have been dispensed. He will follow up in the future as needed. We would like to thank you for letting us participate in his care. We hope he continues to improve. By: [id number]. Joe Hughes MD /CAROLYN
== END ==
LOC: M.PC 11:30
DX: I10 Essential (primary) hypertension (principal); E11.9 Type 2 diabetes mellitus without complications; M79.601 Pain in right arm; Z79.899 Other long term (current) drug therapy

== ENCOUNTER → 2019-01-04 | Outpatient (CLI) | payer OTHER, MEDICARE ==
[~2019-01-04] MED LIST changes: +CLOBETASOL EMU100 GM TP; +hydrocortisone TOP
--- NOTE | ~2019-01-04 | PAINCON ---
[address] [address] PAIN MANAGEMENT CONSULTATION Name: DIMITRIOS PAULINO Room: [facility] Morgan#: [id number] Admission: 01/04/19 Attend Phys: Roselia Hughes MD Discharge: Date of : 53 Report #: [id number] THIS REPORT FOR: //name// CC: CORRINE physician/PCP Roselia Hughes DATE OF SERVICE: 01/04/2019 CHIEF COMPLAINT: Here for medication. 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 Continues to have pain and discomfort involving his right arm. 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 After significant stapling activity, he noticed worsening of pain and discomfort. He is having pain in the right arm, which is consistent with reflex sympathetic dystrophy. His complex medical pain syndrome has been treated with complex medical management. He has undergone spinal cord stimulation. He has moved to the [facility] to be closer with family. He is involved with his grandson's activities. His younger son moved to [place]. He oftentimes wears compression garment on his right hand. Has been seen by a number of physicians. Seen by a chiropractor. He recently had some chest pain and pressure. He progressed later, but did go to the Emergency Room. He was kept in the hospital for 2 days. States that everything came back negative. He was found to have orthostatic hypotension. He has stopped use of his Flomax. Has noted more problems with urination. He feels that his memory and thinking are less acute. Has felt that he has lost his train of thought, more so than in the past. ALLERGIES: No known drug allergies. CURRENT MEDICATIONS: Norvasc 10 mg, potassium, aspirin 81 mg, Cymbalta 60 mg, hydrocodone 7.5 mg, losartan 50 mg, metformin 1000 mg, oxycodone ER 20 mg b.i.d., Lyrica 75 mg, Zocor 40 mg. PAIN CLINIC ASSESSMENT AND PQRS: 1. The patient has some orthopedic changes involving his right upper arm and shoulder. He has not been treated for rheumatoid arthritis. 2. Height 5 feet 10 inches, weight 216 pounds, BMI is 31.2. 3. Vital Signs: Blood pressure 145/83, heart rate 92, respiratory rate 16, room air saturation is 93%, temperature 97.7. 4. Pain intensity, 2/10. 5. The patient has not fallen in the last 3 months. 6. Blood thinner. The patient is not on a blood thinning medication. 7. Hypertension. The patient is being treated for hypertension. 8. Opioid greater than 6 weeks. The patient [facility]. 9. Risk assessment tool, [place] [address] PAIN MANAGEMENT CONSULTATION Name: DIMITRIOS PAULINO Room: [facility] Morgan#: [id number] Admission: 01/04/19 Attend Phys: Roselia Hughes MD Discharge: Date of : 51 Report #: [id number] 10. Functional assessment tool. 11. Recreational drug use. The patient denies use of recreational drugs. 12. Tobacco: The patient denies use of tobacco. 13. Alcohol: The patient denies use of alcoholic beverages. PHYSICAL EXAMINATION: GENERAL: The patient is a well-developed, well-nourished, white male. Appears his stated age. He is alert and oriented x 3. His affect is appropriate. Speech is fluent. HEENT: Normocephalic, atraumatic. Extraocular eye muscles intact. Sclerae nonicteric. Mucous membranes are moist. NECK: Without adenopathy or JVD. HEART: Regular rate. LUNGS: Generally, clear to auscultation without rales or rhonchi. EXTREMITIES: Upper extremity muscle strength is judged to be 5/5 on the left side and 4+ on the right hand side. The patient does not have a glove on today. He has a well-healed scar in the area of the spinal cord stimulator. Some increased discomfort to light touch. IMPRESSION: 1. Reflex sympathetic dystrophy/complex regional pain syndrome involving the right upper extremity with swelling. 2. Lumbar radicular pain in the right lower leg. 3. Hypertension. 4. Diabetes. 5. Episode of chest pain, which was ruled out for significant pathology after a 2-day hospital stay with testing. RECOMMENDATIONS: We will have the patient's medications renewed. He will continue with Cymbalta 60 mg, hydrocodone 7.5 mg every 4-6 hours, Lyrica 75 mg 1 tablet a.m., 2 tablets at bedtime, oxycodone 20 mg 1 p.o. b.i.d. We would like to thank you for letting us participate in his care. We hope he continues to improve. By: [id number]. Joe Hughes MD /CAROLYN
== END ==
LOC: M.PC 05:31
DX: G90.511 Complex regional pain syndrome I of right upper limb (principal); M54.16 Radiculopathy, lumbar region; I10 Essential (primary) hypertension; E11.9 Type 2 diabetes mellitus without complications; Z79.891 Long term (current) use of opiate analgesic; Z79.899 Other long term (current) drug therapy

== ENCOUNTER → 2019-03-01 | Outpatient (CLI) | payer OTHER, MEDICARE ==
--- NOTE | 2019-03-03 01:32 | PAINCON ---
[address] [address] PAIN MANAGEMENT CONSULTATION Name: DIMITRIOS PAULINO Room: [facility] Morgan#: [id number] Admission: 03/01/19 Attend Phys: Roselia Hughes MD Discharge: Date of : 51 Report #: [id number] THIS REPORT FOR: //name// CC: CORRINE physician/PCP Roselia Hughes DATE OF SERVICE: 03/01/2019 CHIEF COMPLAINT: Here for medication renewal. HISTORY: The patient is a 63-year-old gentleman, who has been followed in the pain clinic. As you recall, he has a history of reflex sympathetic dystrophy involving his right hand. 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 Constant use of the stapler caused some trauma to his right hand. He has had reflex sympathetic dystrophy since that time. There continues to be swelling involving the hand. He has pain that is problematic. He has undergone spinal cord stimulation. He has moved to [place] to be close to grandchildren. He has moved from [place]. He continues to wear a compression garment on his right hand. He notes that the hand continues to swell. Also, he has some pain in his right leg and overall things are going reasonably well. He rates his pain as a 2/10. He finds that his medications of oxycodone, hydrocodone, Cymbalta, and Lyrica are working reasonably well. He has about 75%-80% improved with use of his medical regimen. CURRENT MEDICATIONS: Norvasc 10 mg, potassium, aspirin 81 mg, Cymbalta 60 mg, hydrocodone 7.5 mg, losartan 50 mg, metformin 1000 mg, oxycodone ER 20 mg 1 p.o. b.i.d., Lyrica 75 mg, and Zocor 40 mg. ALLERGIES: No known drug allergies. PAIN CLINIC ASSESSMENT AND PQRS: 1. The patient has some orthopedic changes involving his right upper arm and shoulder. He is not being treated for rheumatoid arthritis. 2. Pain intensity is 2/10. 3. Fall risk. The patient has not fallen in the last 3 months. 4. Blood thinner. The patient is not on a blood thinning medication. 5. Hypertension. The patient is being treated for hypertension. 6. Opioids greater than 6 weeks. The patient [facility]. 7. Risk assessment tool, low for opioid use. 8. Functional assessment tool. 9. Recreational drug use. The patient denies use of recreational drugs. 10. Tobacco: The patient denies use of tobacco. 11. Alcohol: The patient denies use of alcoholic beverages. PHYSICAL EXAMINATION: [place] [address] PAIN MANAGEMENT CONSULTATION Name: DIMITRIOS PAULINO [facility] [id number] Admission: 03/01/19 Attend Phys: Roselia Hughes MD Discharge: Date of : 51 Report #: [id number] GENERAL: The patient is a well-developed, well-nourished white male. He appears his stated age. He is alert and oriented x 3. Affect is appropriate. Speech is fluent. Height is 5 feet 10 inches, weight is 220 pounds, and BMI is 31.5. VITAL SIGNS: Blood pressure is 129/85, heart rate is 95, respiratory rate is 16, room air saturation is 95%, and temperature is 98.0. HEENT: Normocephalic, atraumatic. Extraocular eye muscles intact. Sclerae nonicteric. Mucous membranes are moist. NECK: Without adenopathy or JVD. HEART: Regular rate. LUNGS: Clear to auscultation without rhonchi or rales. EXTREMITIES: Upper extremity strength is judged to be 5-5/5 on the left and 4+/5 on the right. He has some swelling in his right hand. It is swollen to the point that one cannot see the knuckles. It is swollen to the area of his wrist. He has some increased discomfort with light touch. IMPRESSION: 1. Reflex sympathetic dystrophy/complex regional pain syndrome involving the right upper extremity with swelling. 2. Lumbar radicular pain in the right lower leg. 3. Hypertension. 4. Diabetes. 5. Episodes of chest pain, which were ruled out for cardiac problems. RECOMMENDATIONS: We have discussed treatment options with the patient. At this juncture, he feels his medications are working reasonably well. We are going to continue his medications. We have had discussion regarding the use of opioid medications. The patient is aware that 70,000 people last year as a result of overdose with medications. He still feels his medications are helpful. They enable him to engage in activities of daily living. He is able to engage more with his grandchildren. He is having no complication from the medications. He is taking as prescribed. He is aware that long-term use of opioid medications can cause problems with addiction in some patients as well as become less effective secondary to tolerance. Overall, he feels his medications are working reasonably well. He would like to continue with the medications. He continues to take it as prescribed. He will call us if he has any concerns. We would like to thank you for letting us to participate in his care. We hope he continues to improve. <ELECTRONICALLY SIGNED> By: Roselia Hughes MD 03/03/19 [id number]. Joe Hughes MD /CAROLYN
== END ==
LOC: M.PC 04:55
DX: G90.511 Complex regional pain syndrome I of right upper limb (principal); M54.16 Radiculopathy, lumbar region; M79.604 Pain in right leg; I10 Essential (primary) hypertension; E11.9 Type 2 diabetes mellitus without complications; R07.9 Chest pain, unspecified; Z79.899 Other long term (current) drug therapy

== ENCOUNTER → 2019-05-05 | Outpatient (CLI) | payer OTHER, MEDICARE ==
[~2019-05-05] MED LIST changes: +OXYCONTIN10 M1 PO
--- NOTE | ~2019-05-05 | PAINCON ---
[address] [address] PAIN MANAGEMENT CONSULTATION Name: DIMITRIOS PAULINO Room: [facility] HUARon Morgan#: [id number] Admission: 05/05/19 Attend Phys: Roselia Hughes MD Discharge: Date of : 51 Report #: [id number] THIS REPORT FOR: //name// CC: CORRINE physician/PCP Roselia Hughes DATE OF SERVICE: 05/05/2019 CHIEF COMPLAINT: Here for medication renewal and I would like to decrease medications, If I can. HISTORY: The patient is a 63-year-old gentleman who has been followed in the pain clinic because of chronic pain. As you may recall, he has a history of reflex sympathetic dystrophy. This involves his right hand. 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 As a result of constant use of the stapler, he noticed some reflex sympathetic changes in his hand. He continues to have swelling and pain and discomfort and rates it as a 2 today. He continues to note some swelling in the hand. As you recall, he moved to [place] to be closer to his grandchildren. Does wear a compression garment on the right hand. Feels that the current medical regimen of oxycodone, hydrocodone, Cymbalta and Lyrica are working reasonably well. CURRENT MEDICATIONS: Norvasc 10 mg, potassium, aspirin 81 mg, Cymbalta 60 mg, hydrocodone 7.5 mg, lowers, losartan 50 mg, metformin 1000 mg, oxycodone ER 1 mg p.o. b.i.d., Lyrica 75 mg, Zocor 40 mg. ALLERGIES: No known drug allergies. PAIN CLINIC ASSESSMENT/PQRS: 1. The patient has some changes involving his right upper arm and shoulder. He is not being treated for rheumatoid arthritis. 2. Height 5 feet 10 inches, weight 219 pounds, BMI is 31.3. 3. Vital Signs: Blood pressure 136/69, heart rate 96, respiratory rate 16, room air saturation 94%, temperature 97.6. 4. Pain intensity 11/14. 5. Fall history: The patient has not fallen in the last 3 months. 6. Blood thinner. The patient is not on a blood thinning medication. 7. Opioids. The patient [facility]. 8. Risk assessment tool, low for opioid use. 9. Functional assessment tool. 10. Recreational drug use. The patient denies use of recreational drugs. 11. Tobacco: The patient denies use of tobacco. 12. Alcohol: The patient denies use of alcoholic beverages. PHYSICAL EXAMINATION: [address] [place] [address] PAIN MANAGEMENT CONSULTATION Name: DIMITRIOS PAULINO Room: [facility]#: [id number] Admission: 05/05/19 Attend Phys: Roselia Hughes MD Discharge: Date of : 53 Report #: [id number] GENERAL: The patient is a well-developed, well-nourished white male. Appears his stated age. He is alert and oriented x 3. His affect is appropriate. Speech is fluent. HEENT: Normocephalic, atraumatic. Extraocular eye muscles intact. Sclerae nonicteric. Mucous membranes are moist. NECK: Without adenopathy or JVD. HEART: Regular rate. LUNGS: Clear to auscultation without rhonchi or rales. EXTREMITIES: His right upper extremity is judged to be 4+/5 for the major muscle groups, 5/5 for the left upper extremity. The patient is not wearing a glove, but there is swelling involved in his right hand. MUSCULOSKELETAL: The patient without significant scoliosis, kyphosis or lordosis. Lower extremity muscle strength judged to be 5/5 for the major muscle groups in the lower extremity. IMPRESSION: 1. Reflex sympathetic dystrophy/complex regional pain syndrome involving the right hand with swelling. Knuckles are indistinguishable because of the swelling. 2. Lumbar radicular pain in the right lower leg. 3. Hypertension. 4. Diabetes. 5. Episodes of chest pain in the past, which have been ruled out for cardiac problems. RECOMMENDATIONS: We discussed treatment options with the patient. At this juncture, we will continue with this medications. He feels that the medications are beneficial. He feels at this point since his pain has been reasonably controlled. He would like to try to decrease medications as he is able to. We have discussed the oxycodone. The patient is on a dose of oxycodone 40 mg daily. At this point, we will move only one of his medications. He noticed some changes or problems, we can attributed to that one movement. We will decrease his oxycodone from 20 mg b.i.d. to 20 mg morning and 10 mg in the evening. A script for these medications has been written. The patient will also continue with his hydrocodone 7.5 mg one p.o. q. 4-6 hours p.r.n. pain. We would like to thank you for letting us participate in the patient's care. Should he have any problems or concerns, he will then call us. I think he will do well. He has a good attitude. We would like to thank you for letting us participate in his care. A script for his medications has been rewritten. We will continue to monitor the patient's pain control with a contract with his complex medical management using opioids. By: [id number]. Joe Hughes MD /CAROLYN
== END ==
LOC: M.PC 05:16
DX: G90.511 Complex regional pain syndrome I of right upper limb (principal); M54.16 Radiculopathy, lumbar region; M79.605 Pain in left leg; I10 Essential (primary) hypertension; E11.9 Type 2 diabetes mellitus without complications; R07.9 Chest pain, unspecified; Z79.899 Other long term (current) drug therapy

== ENCOUNTER → 2019-06-30 | Outpatient (CLI) | payer OTHER, MEDICARE ==
[~2019-06-30] MED LIST changes: +PERCOCET 7.5-31 EACH PO
--- NOTE | 2019-07-27 09:09 | PAINCON ---
[address] [address] PAIN MANAGEMENT CONSULTATION Name: DIMITRIOS PAULINO Room: [facility] GREYSON CannonCristianaNancyCristiana#: [id number] Admission: 06/30/19 Attend Phys: Roselia Hughes MD Discharge: Date of : 51 Report #: [id number] THIS REPORT FOR: //name// CC: Dr. Vinny Gomez [facility] physician/PCP Rosleia Hughes DATE OF SERVICE: 06/30/2019 CHIEF COMPLAINT: Here for medications. HISTORY: The patient is a very pleasant 63-year-old gentleman. As you recall, he has problems with reflex sympathetic dystrophy. This involves his right hand. Continues to have some pain and discomfort with swelling. Rates his pain as a 3/10 today. As you may recall, he used his hand with a stapler at his job. As a result of constant use of the stapler he developed reflex sympathetic dystrophy in his right hand. He continues to rate the pain between 2-3 on most occasions. He does have an increased swelling in the hands today. He has lived in [place] over the last 4 years. He is here to support his grandson. His grandson now is about 4 years old. 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 He feels that his current medications of oxycodone, hydrocodone and Cymbalta in conjunction with Lyrica are helpful. He would like to continue to decrease his opioid medications as much as possible. He has decreased it from 20 mg daily to 10 mg. He feels that he would like to try to decrease it a number of milligrams less. CURRENT MEDICATIONS: Norvasc 10 mg, potassium, aspirin 81 mg, Cymbalta 60 mg, hydrocodone 7.5 mg, losartan 50 mg, metformin 1000 mg, oxycodone 10 mg, Lyrica 75 mg, Zocor 40 mg. ALLERGIES: No known drug allergies. MEDICATIONS: 1. The patient has some swelling and changes in his right hand. Also, has some discomfort in his right shoulder. He is not being treated for rheumatoid arthritis. 2. Height 5 feet 10 inches, weight 219 pounds, BMI is 31. 3. Vital Signs: Blood pressure 139/78, heart rate 85, respiratory rate 16, room air saturation 95%, temperature is 97.7. 4. Pain intensity 12/12. 5. Fall history: The patient has not fallen in the last 3 months. 6. Blood thinner. The patient is not on a blood thinning medication. 7. Hypertension. The patient is being treated for hypertension. 8. Opioids greater than 6 weeks. The [facility]. 9. Risk assessment tool, [place] [address] PAIN MANAGEMENT CONSULTATION Name: DIMITRIOS PAULINO Room: [facility]#: [id number] Admission: 06/30/19 Attend Phys: Roselia Hughes MD Discharge: Date of : 53 Report #: [id number] 10. Functional assessment tool. 11. Recreational drug use. The patient denies. 12. Tobacco: The patient has not smoked. 13. Alcohol: The patient denies use of alcoholic beverages. PHYSICAL EXAMINATION: GENERAL: The patient is a well-developed, very affable white male. Appears his stated age. He is alert and oriented x 3. His affect is appropriate. Speech is fluent. HEENT: Normocephalic, atraumatic. Extraocular eye muscles intact. Sclerae nonicteric. Mucous membranes are moist. NECK: Without adenopathy or JVD. HEART: Regular rate. LUNGS: Clear to auscultation without rhonchi or rales. EXTREMITIES: His right upper extremity judged to be 4+/5 for the major muscle groups in the left upper extremity, left upper extremity muscle strength is 5/5. The patient has swelling in his right hand. There is some loosening of the skin because of swelling, which had been previously. MUSCULOSKELETAL: The patient without significant scoliosis, kyphosis or lordosis. Lower extremity muscle strength judged to be 5/5 for the major muscle groups. IMPRESSION: 1. Reflex sympathetic dystrophy/complex regional pain syndrome involving his right hand with swelling. There is some redness in the knuckle area. Knuckles are indistinguishable because of the swelling. 2. Lumbar radicular pain, right lower extremity: 3. Hypertension. 4. Diabetes. 5. Episodes of chest pain in the past, ruled out for cardiac problems. RECOMMENDATIONS: We discussed treatment options with the patient. At this juncture, we will continue with his medications of Cymbalta 60 mg daily, hydrocodone 7.5 mg one p.o. q.4-6 hours total 100 tablets per month, we have decreased the patient from OxyContin 20 mg p.o. b.i.d. OxyContin 10 mg daily. He felt that he tolerated that reasonably well. Did not notice a significant change in his pain. At this juncture, we will try to decrease somewhat more. We will have the patient try Percocet 7.5 mg 1 p.o. daily and continue with the hydrocodone and other current medications. Should he find his pain medication as we will not sustain him. We then increased the Percocet to two tablets daily. [place] [address] PAIN MANAGEMENT CONSULTATION Name: JEFFERSONDIMITRIOS Room: [facility] GREYSON Marsh.#: [id number] Admission: 06/30/19 Attend Phys: Roselia Hughes MD Discharge: Date of : 53 Report #: [id number] We would like to thank you for letting us participate in his care. We hope he continues to improve. <ELECTRONICALLY SIGNED> By: Roselia Hughes MD 07/27/19 0909 [id number]. Joe Hughes MD /PMT
== END ==
LOC: M.PC 04:51
DX: M54.16 Radiculopathy, lumbar region (principal); G90.511 Complex regional pain syndrome I of right upper limb; I10 Essential (primary) hypertension; E11.9 Type 2 diabetes mellitus without complications

== ENCOUNTER → 2019-08-25 | Outpatient (CLI) | payer OTHER, MEDICARE ==
--- NOTE | 2019-09-06 09:09 | PAINCON ---
[address] [address] PAIN MANAGEMENT CONSULTATION Name: DIMITRIOS PAULINO Room: [facility] GRE[facility]ON CannonCristianaNancyCristiana#: [id number] Admission: 08/25/19 Attend Phys: Roselia Hughes MD Discharge: Date of : 53 Report #: [id number] THIS REPORT FOR: //name// CC: [facility] physician/PCP Roselia Cho DATE OF SERVICE: 08/25/2019 CHIEF COMPLAINT: Here for evaluation. I am still having pain in my hand. HISTORY: The patient is a 63-year-old gentleman who has been followed in the pain clinic. He suffers from reflex sympathetic dystrophy. It involves his right hand. Continues to note some swelling in this hand. Rates his pain as 5/10 today. It involves his right arm. He did have a flu shot last week. Otherwise, things are going reasonably well. States that the pain continues to run sometimes higher up in his arm. He feels that his memory is not as good as it had been. He is somewhat concerned about the possibility of memory loss. Rates his pain overall as a 5/10. He feels that the cold weather has exacerbated his pain and discomfort. As you may recall, he moved to [place] to support his grandson who is about 4-5 years old. He has returned today for renewal of his medications. He is thriving to take the least amount of opioid if possible. ALLERGIES: No known drug allergies. CURRENT MEDICATIONS: Norvasc 10 mg, potassium, aspirin 81 mg, Cymbalta 60 mg, hydrocodone 7.5 mg, losartan 50 mg, metformin 1000 mg, oxycodone 10, Lyrica 75 mg, Zocor 40 mg. MEDICAL HISTORY: The patient has had some swelling and changes in right hand. Notes some discomfort up in the area of his right shoulder. He is not being treated for rheumatoid arthritis. Height 5 feet 10 inches, weight 216 pounds, BMI is 31.0. Vital Signs: Blood pressure 146/78, heart rate 95, respiratory rate 16, room air saturation 96%, temperature 98.0. Pain intensity 5/10. Fall history: The patient has not fallen in the last 3 months. Blood thinner. The patient is not on a blood thinning medication. Hypertension. The patient is being treated for hypertension. Opioids greater than 6 weeks. The [facility]. Risk assessment tool, low for opioid use. Recreational drug use. They have been reviewed. Tobacco: The [place] [address] PAIN MANAGEMENT CONSULTATION Name: DIMITRIOS PAULINO Room: [facility]#: [id number] Admission: 08/25/19 Attend Phys: Roselia Hughes MD Discharge: Date of : 53 Report #: [id number] Alcohol: The patient denies use of alcoholic beverages. PHYSICAL EXAMINATION: GENERAL: The patient is a well-developed, well-nourished white male. Appears his stated age. He is alert and oriented x 3. Affect is appropriate. Speech is fluent. HEENT: Normocephalic, atraumatic. Extraocular eye muscles intact. Sclerae nonicteric. Mucous membranes are moist. NECK: Without adenopathy or JVD. LUNGS: Clear to auscultation without rhonchi or rales. EXTREMITIES: Upper extremity muscle strength judged to be 5/5 on the left side. The patient's muscle strength 4+ on the right arm and hand. The patient without significant scoliosis, kyphosis or lordosis. Lower extremity muscle strength judged to be 5/5 for the major muscle groups in the upper extremity. IMPRESSION: 1. Reflex sympathetic dystrophy in joint involving the right hand with swelling. The patient has redness in the area of his knuckles. Some loss of the anatomy of the knuckles has been diminished secondary to swelling. 2. Lumbar radicular pain, right lower extremity. 3. Hypertension. 4. Diabetes. 5. Episodes of chest pain in the past, ruled out for cardiac problems. RECOMMENDATIONS: We discussed treatment options with the patient. At this juncture, he feels that the medications are helpful. He would like to take the least amount of opioids possible. He is aware that opioid medications can be problematic in certain people. He is aware that long-term use of opioids can become less effective secondary to development of tolerance. He keeps his medications in a guarded area. He has a young grandson in the area. He continues to have swelling associated with the reflex sympathetic dystrophy problem. We will continue with his medication using the least amount of opioid medication to help control his pain and enable him to stay active. A script for his medications of OxyContin 10 mg daily has been written. The patient will also continue with hydrocodone 7.5 mg 1 p.o. t.i.d. He will call us if he has any concerns. We would like to thank you for letting us participate in his care. The patient is aware that 70,000 people last year as a result of overdosing on medications. <ELECTRONICALLY SIGNED> By: Roselia Hughes MD 09/06/19 0909 [id number]. Joe Hughes MD /jenn
== END ==
LOC: M.PC 05:08
DX: Z76.0 Encounter for issue of repeat prescription (principal); G90.511 Complex regional pain syndrome I of right upper limb; M54.16 Radiculopathy, lumbar region; E11.9 Type 2 diabetes mellitus without complications; I10 Essential (primary) hypertension; Z79.899 Other long term (current) drug therapy; Z79.891 Long term (current) use of opiate analgesic

== ENCOUNTER → 2019-10-20 | Outpatient (CLI) | payer OTHER, MEDICARE ==
--- NOTE | ~2019-10-20 | PAINCON ---
[address] [address] PAIN MANAGEMENT CONSULTATION Name: DIMITRIOS PAULINO Room: [facility] GRE[place]ON Morgan#: [id number] Admission: 10/20/19 Attend Phys: Roselia Hughes MD Discharge: Date of : 53 Report #: [id number] THIS REPORT FOR: //name// CC: SOFI Rodriguez DATE OF SERVICE: 10/20/2019 CHIEF COMPLAINT: Here for medication renewal. HISTORY: The patient is a 64-year-old gentleman who has been experiencing pain and discomfort involving his right arm and hand. The patient feels that his medications are helpful. He has decreased the amount of opioids he has taken since we saw him last. He feels that this has mildly cleared his sensorium. He is trying to decrease the amount of opioids to a minimal amount. He noted some worsening of the weather this month. This did increase the pain and discomfort he had been experiencing. He continues to notice swelling in the forearm as well as down into his hands. The knuckles are not prominent in the right hand because of the swelling. He notes that he is not sleeping very well. He often wakes about every 4 hours. He is undergoing a sleep study. He is awaiting electrocardiogram results. He feels his pain is about 40-50% improved with his current medical regimen. Notes that the cold weather as well as activity has increased his pain and discomfort. He moved to [place] to support his grandson who is about 4-5 years old. ALLERGIES: No known drug allergies. CURRENT MEDICATIONS: Norvasc 10 mg, potassium, aspirin 81 mg, Cymbalta 60 mg, hydrocodone 7.5 mg, losartan 50 mg, metformin 1000 mg, oxycodone 10 mg, Lyrica 75 mg, Zocor 40 mg. PAIN CLINIC ASSESSMENT AND PQRS: 1. Height 5 feet 10 inches, weight is 214 pounds, BMI is 30. 2. Vital signs: Blood pressure 127/67, heart rate 100, respiratory rate 18, room air saturation 94%, temperature 97.6. 3. Pain intensity 02/11. 4. Fall history: The patient has not fallen in the last 3 months. 5. Blood thinner. The patient is not on a blood thinning medication. 6. Hypertension. The patient is being treated for hypertension. 7. Opioids greater than 6 weeks. The patient receives [facility] from [facility]. 8. Risk assessment tool, low for opioid use. 9. Recreational drug use. This has been reviewed. 10. Tobacco: The patient denies use of tobacco. 11. Alcohol: The patient denies [place] [address] PAIN MANAGEMENT CONSULTATION Name: DIMITRIOS PAULINO Room: [facility] HUA Eddie#: [id number] Admission: 10/20/19 Attend Phys: Roselia Hughes MD Discharge: Date of : 53 Report #: [id number] 12. Tobacco: The patient denies smoking. PHYSICAL EXAMINATION: GENERAL: The patient is a well-developed, well-nourished white male. Appears his stated age. He is alert and oriented x 3. His affect is appropriate. Speech is fluent. HEENT: Normocephalic, atraumatic. Extraocular eye muscles intact. Sclerae nonicteric. Mucous membranes are moist. NECK: Without adenopathy or JVD. HEART: Regular rate. ABDOMEN: Nontender. LUNGS: Clear to auscultation. EXTREMITIES: Upper extremity muscle strength judged to be 5/5 for the major muscle groups on the left side and 4+/5 on the right side with swelling in the hand. We are unable to see the knuckles because of the swelling. Has some increased sensitivity to touch. Lower extremity muscle strength judged to be 5/5 for the major muscle groups in the lower extremity. IMPRESSION: 1. Reflex sympathetic dystrophy involving the joints of his right hand with swelling. The patient has some loss of the anatomy of his knuckles in this area secondary to swelling. 2. Lumbar radicular pain, right lower extremity. 3. Hypertension. 4. Diabetes. 5. Episode of chest pain in the past. Ruled out for cardiac problems. RECOMMENDATIONS: We discussed treatment options with the patient. At this juncture, we will continue with his medications. We will continue to try to limit the amount of opioids that he is taking. The risks and benefits of the medication were again reviewed. They could include but are not limited to infection, worsening of pain, no improvement in pain, development of tolerance as well as development of addiction. The patient has not shown any signs of either of these. We will renew his medications for hydrocodone 7.5 mg, total of 100 tablets per month. He will try this for the next 2 months. He will also continue with Percocet 7.5 mg 30 tablets 1 p.o. daily if the hydrocodone medication does not well his pain significantly. By: 49 N. Joe Hughes MD /nt
== END ==
LOC: M.PC 10:00
DX: M54.16 Radiculopathy, lumbar region (principal); I10 Essential (primary) hypertension; E11.9 Type 2 diabetes mellitus without complications; Z79.899 Other long term (current) drug therapy; Z88.8 Allergy status to other drugs, medicaments and biological substances

== ENCOUNTER → 2019-12-15 | Outpatient (CLI) | payer OTHER, MEDICARE ==
--- NOTE | ~2019-12-15 | PAINCON ---
[address] [address] PAIN MANAGEMENT CONSULTATION Name: DIMITRIOS PAULINO Room: [facility] Eddie#: [id number] Admission: 12/15/19 Attend Phys: Roselia Hughes MD Discharge: Date of : 51 Report #: [id number] THIS REPORT FOR: //name// cc: SOFI STANLEY KELLY M. DO ~ THIS REPORT FOR: //name// CC: SOFI Rodriguez DATE OF SERVICE: 12/15/2019 PRIMARY PHYSICIAN: Sofi Stanley DO CHIEF COMPLAINT: "Still having swelling in my hand." HISTORY OF PRESENT ILLNESS: The patient is a 64-year-old gentleman, who has been followed in the pain clinic. Continues to have pain and swelling in his right hand. As you may recall, he has been experiencing swelling in his hand associated with reflex sympathetic dystrophy. He has been using medications over the years, which has been helpful. He sometimes notes that the swelling not only encompasses his hand, but swells up into his forearm. He has returned today for renewal of his medications. He has noticed an increase in pain over the last month. He has been trying to decrease the use of his opioid medications. He is considering CPAP machine. He is getting this setup through his physician. He rates his pain as a 4-5/10. He feels that his pain is about 45% improved with his current medical regimen. ALLERGIES: No known drug allergies. CURRENT MEDICATIONS: Norvasc 10 mg, potassium, aspirin 81 mg, Cymbalta 60 mg, hydrocodone 5/325, losartan 50 mg, metoprolol 100 mg, oxycodone 10 mg, Lyrica 75 mg, Zocor 40 mg. PAIN CLINIC ASSESSMENT AND PQRS: 1. The patient's height is 5 feet 10 inches, weight 214 pounds, BMI is 30. 2. Vital signs: Blood pressure 130/79, heart rate 91, respiratory rate 16, room air saturation is 95%, temperature 97.9. 3. Pain intensity is 4-5/10. 4. Fall history: The patient has not fallen in the last 3 months. 5. Blood thinner. The patient is not on a blood-thinning medication. 6. Hypertension. The patient is being treated for hypertension. 7. Opioids greater than 6 weeks. The patient receives medication from one source, pain clinic. 8. Risk assessment tool: [place] [address] PAIN MANAGEMENT CONSULTATION Name: DIMITRIOS PAULINO Room: [facility]#: [id number] Admission: 12/15/19 Attend Phys: Roselia Hughes MD Discharge: Date of : 51 Report #: [id number] 9. Recreational drug use: The patient denies. 10. Tobacco: The patient denies use of tobacco. 11. Alcohol. The patient denies use of alcoholic beverages. PHYSICAL EXAMINATION: GENERAL: The patient is a well-developed, well-nourished white male. Appears his stated age. He is alert and oriented x 3. His affect is appropriate. Speech is fluent. HEENT: Normocephalic, atraumatic. Extraocular eye muscles are intact. Sclerae are nonicteric. Mucous membranes are moist. NECK: Without adenopathy or JVD. HEART: Regular rate. ABDOMEN: Nontender. LUNGS: Clear to auscultation. EXTREMITIES: Upper extremity muscle strength judged to be 5/5 for the major muscle groups on the left. Pain and discomfort cause vegetable picker strength on the right to be 4/5; there is some swelling in this hand; one is unable to delineate his knuckles; has increased sensitivity to light touch. Lower extremity muscle strength judged to be 5/5 for the major muscle groups in the lower extremities. IMPRESSION: 1. Reflex sympathetic dystrophy involving the joints of his right hand with swelling. . 2. Lumbar radicular pain, right lower extremity. 3. Hypertension. 4. Diabetes. 5. Episode of chest pain in the past, ruled out for cardiac problems, and has undergone echocardiogram, which came back as normal. 6. Sleep apnea, securing a CPAP machine at this juncture. RECOMMENDATIONS: We discussed treatment options with the patient. Risks and benefits of opioid use were discussed. The patient feels that his medications continue to be helpful. He has been trying to decrease medications that he is taking. He has noted an increase in his pain as a result of that. He is getting a CPAP machine. He has been found to have sleep apnea. Echocardiogram was within normal limits. He would like to continue with his medications. A script for his medications has been written. He feels that about 45% pain relief is provided with the medications. He is aware that medications over a period of time can become less effective secondary to tolerance. A script for his medications has been rewritten. He will continue with Cymbalta 60 mg 1 p.o. daily; hydrocodone 7.5 mg one p.o. q.4-6 hours, 100 tablets have been written for the month; Lyrica 75 mg 1 p.o. t.i.d. has been provided. The patient will continue with Percocet 7.5 mg 1 [address] [address] PAIN MANAGEMENT CONSULTATION Name: DIMITRIOS PAULINO Room: [facility] Morgan#: [id number] Admission: 12/15/19 Attend Phys: Roselia Hughes MD Discharge: Date of : 51 Report #: [id number] We would like to thank you for letting us participate in his care. We hope he continues to improve. By: [id number]. Joe Hughes MD /nt
== END ==
LOC: M.PC 06:00
DX: M54.16 Radiculopathy, lumbar region (principal); I10 Essential (primary) hypertension; E11.9 Type 2 diabetes mellitus without complications; G47.30 Sleep apnea, unspecified

== ENCOUNTER → 2020-02-09 | Outpatient (CLI) | payer OTHER, MEDICARE ==
--- NOTE | 2020-02-21 08:21 | PAINCON ---
[address] [address] PAIN MANAGEMENT CONSULTATION Name: DIMITRIOS PAULINO Room: [facility] CannonCristianaNancyCristiana#: [id number] Admission: 02/09/20 Attend Phys: Roselia Hughes MD Discharge: Date of : 51 Report #: [id number] THIS REPORT FOR: //name// cc: SOFI JENNINGS DO SOFI JENNINGS DO ~ THIS REPORT FOR: //name// CC: SOFI Hughes DATE OF SERVICE: 02/09/2020 CHIEF COMPLAINT: Coming down off some of the medication. HISTORY: The patient is a 64-year-old gentleman who has been followed in the pain clinic. He does have continued pain in his right hand. As you may recall, he has reflex sympathetic dystrophy. After using his hand to compress the stapler he developed reflex sympathetic dystrophy. Continues to have some swelling in his hand and forearm. Sometimes are more problematic than others. He rates his pain as 5/10. He is also having some pain in his left leg. He has decreased the oxycodone medication. He still uses a spinal cord stimulator. He finds that he continues to be helpful. He feels overall that things are about 25% improved with his current medical regimen. Sitting and activity can exacerbate his discomfort. He does have sleep apnea and continued to consider use of CPAP machine. ALLERGIES: No known drug allergies. CURRENT MEDICATIONS: Norvasc 10 mg, potassium, aspirin 81 mg, Cymbalta 60 mg, hydrocodone 7.5 mg 1 p.o. q.i.d., Lyrica 75 mg at bedtime, Cymbalta 60 mg daily. The patient has stopped using oxycodone 7.5 mg. PAIN CLINIC ASSESSMENT AND PQRS: 1. The patient's height 5 feet 10 inch, weight 210 pounds, BMI is 30. 2. Vital Signs: Blood pressure 141/82, heart rate 92, respiratory rate 16, room air saturation is 98%, temperature 97.8. 3. Pain intensity 02/11. 4. Fall history: The patient has not fallen in the last 3 months. 5. Blood thinner. The patient is not on a blood thinning medication. 6. Hypertension. The patient is being treated for hypertension. 7. Opioids greater than 6 weeks. The patient received medication from one source the pain clinic. 8. Risk assessment tool, low for opioid use. 9. Recreational drug use. The patient denies. 10. Tobacco: The patient denies use of tobacco. 11. Alcohol. The patient denies [place] [address] PAIN MANAGEMENT CONSULTATION Name: DIMITRIOS PAULINO Room: [facility]#: [id number] Admission: 02/09/20 Attend Phys: Roselia Hughes MD Discharge: Date of : 51 Report #: [id number] PHYSICAL EXAMINATION: GENERAL: The patient is a well-developed, well-nourished white male. Appears his stated age. He is alert and oriented x 3. His affect is appropriate. Speech is fluent. HEENT: Normocephalic, atraumatic. Extraocular eye muscles intact. Sclerae nonicteric. Mucous membranes are moist. The patient has a mask on. NECK: Without adenopathy or JVD. HEART: Regular rate. ABDOMEN: Nontender. LUNGS: Clear to auscultation. EXTREMITIES: Upper extremity muscle strength judged to be 5/5 on the left side. Muscle strength on the right 4/5. Note some swelling from his wrist down into his hand and on the dorsum of his hand. Difficult to see the knuckles because of the swelling. Lower extremity muscle strength judged to be 5/5 for the major muscle groups in the lower extremity. IMPRESSION: 1. Reflex sympathetic dystrophy involving the right hand with swelling. 2. Lumbar radicular pain, right lower extremity. 3. Hypertension. 4. Diabetes. 5. Sleep apnea, working on a CPAP machine. RECOMMENDATIONS: We discussed treatment options with the patient. At this juncture, we will continue with his medications. Risks and benefits of a CPAP machine were discussed with the patient. We also explained the pathophysiology of opioid use. Some patients find his medications become less effective as time goes on. The patient has continued to work towards decreasing his medication. A script for his medications has been provided. He will continue with hydrocodone 7.5 mg one p.o. q. 4-6 hours. The patient will also continue with Lyrica 75 mg 1 p.o. t.i.d. The patient has stopped taking the Percocet medication. He will continue with Cymbalta. He will continue to work and uses a CPAP machine. We have discussed the pathophysiology and problems associated with sleep apnea. A script for his medications has been provided. The patient will call us if he has any concerns. We would like to thank you for letting us participate in his care. We hope he continues to improve. <ELECTRONICALLY SIGNED> By: Roselia Hughes MD 02/21/20 0821 [id number]. Joe Hughes MD /PMT
== END ==
LOC: M.PC 01:51
DX: G90.511 Complex regional pain syndrome I of right upper limb (principal); M54.16 Radiculopathy, lumbar region; I10 Essential (primary) hypertension; E11.9 Type 2 diabetes mellitus without complications; F11.20 Opioid dependence, uncomplicated; G47.30 Sleep apnea, unspecified; Z79.899 Other long term (current) drug therapy

== ENCOUNTER → 2020-04-05 | Outpatient (CLI) | payer OTHER, MEDICARE ==
--- NOTE | 2020-04-18 11:31 | PAINCON ---
[address] [address] PAIN MANAGEMENT CONSULTATION Name: DIMITRIOS PAULINO Room: [facility] CannonCarson#: [id number] Admission: 04/05/20 Attend Phys: Roselia Hughes MD Discharge: Date of : 51 Report #: [id number] THIS REPORT FOR: //name// cc: SOFI JENNINGS DO SOFI JENNINGS DO ~ THIS REPORT FOR: //name// CC: SOFI Hughes DATE OF SERVICE: 04/05/2020 CHIEF COMPLAINT: Neuropathic pain in the right hand. HISTORY: The patient is a 64-year-old gentleman who has been followed in the pain clinic for some time. As you may recall, he has developed reflex sympathetic dystrophy after using a stapler. Using the stapler to compress papers, the patient developed a reflex sympathetic dystrophy involving his right hand. It continues to swell into his hand and forearm. He has been using medications, which have been helpful. Rates his pain as a 3/10 today. He has not had any significant changes at this juncture. He feels that his pain is being maintained with his current medical regimen. Also, has some discomfort involving his right leg. He notes the pain is exacerbated with activity, cold weather makes it worse. Walking and standing can be problematic. He feels that his medications are about 75% effective in controlling the pain. ALLERGIES: No known drug allergies. CURRENT MEDICATIONS: Norvasc 10 mg, potassium, aspirin 81 mg, Cymbalta 60 mg, hydrocodone 7.5 mg 1 p.o. q.i.d., Lyrica 75 mg, the patient was using oxycodone, but has stopped using that medication. PAIN CLINIC ASSESSMENT AND PQRS: 1. The patient is not being treated for rheumatoid arthritis or osteoarthritis. 2. Height 5 feet 10 inches, weight 213 pounds, BMI is 30. 3. Vital signs: Blood pressure 131/85, heart rate 92, respiratory rate 18, room air saturation 97%. 4. Pain intensity, 12/12. 5. Fall history. The patient has not fallen in the last 3 months. 6. Blood thinner. The patient is not on a blood thinning medication. 7. Hypertension. The patient is being treated for hypertension. 8. Opioids greater than 6 weeks. The patient receives medication from one source, the pain clinic. 9. Risk assessment tool, low for opioid use. 10. Recreational drug use, the patient denies. 11. Tobacco. The patient [place] [address] PAIN MANAGEMENT CONSULTATION Name: DIMITRIOS PAULINO Room: [facility]#: [id number] Admission: 04/05/20 Attend Phys: Roselia Hughes MD Discharge: Date of : 51 Report #: [id number] 12. Alcohol. The patient denies use of alcoholic beverages. PHYSICAL EXAMINATION: GENERAL: The patient is a well-developed, well-nourished, white male. Appears his stated age. He is alert and oriented x 3. His affect is appropriate. Speech is fluent. HEENT: Normocephalic, atraumatic. Extraocular eye muscles intact. Sclerae nonicteric. Mucous membranes are moist. The patient is wearing a mask. NECK: Without adenopathy or JVD. HEART: Regular rate. ABDOMEN: Nontender. LUNGS: Clear to auscultation. EXTREMITIES: Upper extremity muscle strength judged to be 5/5 for the major muscle groups in the upper extremity. Muscle strength on the right side judged to be 4/5. The patient has some swelling in his right hand. It is noted on the dorsum of his hand, there is some loss of ability to see his knuckles because of the swelling. Lower extremity muscle strength judged to be 5/5 for the major muscle groups in the upper extremity. IMPRESSION: 1. Reflex sympathetic dystrophy involving the right hand with swelling. 2. Lumbar radiculopathy with right lower extremity discomfort. 3. Hypertension. 4. Diabetes. 5. Sleep apnea, uses a CPAP machine. RECOMMENDATIONS: We discussed treatment options with the patient. At this juncture, we will continue with his medications. He feels medications provide about 70% improvement in his pain. He has taken the medication as prescribed. He has decreased use of his opioids. He is no longer using the oxycodone. He feels that the hydrocodone is sufficient at this juncture. He feels that the Lyrica medication is also beneficial as well. He feels that Cymbalta continues to be beneficial. He will continue to use his medications as prescribed. He is aware that opioid medications can become less effective over time because of development of tolerance. He keeps his medications in a guarded area. We would like to thank you for letting us participate in his care. We hope he continues to improve. <ELECTRONICALLY SIGNED> By: Roselia Hughes MD 04/18/20 1131 [id number]. Joe Hughes MD /PMT
== END ==
LOC: M.PC 02:28
PROVIDERS: ATTEND Anesthesiology Pain Medicine
DX: G90.511 Complex regional pain syndrome I of right upper limb (principal); M54.16 Radiculopathy, lumbar region; I10 Essential (primary) hypertension; E11.9 Type 2 diabetes mellitus without complications; G47.30 Sleep apnea, unspecified

== ENCOUNTER → 2020-05-31 | Outpatient (CLI) | payer OTHER, MEDICARE ==
--- NOTE | 2020-06-07 15:10 | PAINCON ---
[address] [address] PAIN MANAGEMENT CONSULTATION Name: DIMITRIOS PAULINO Room: [facility] CannonCarson#: [id number] Admission: 05/31/20 Attend Phys: Roselia Hughes MD Discharge: Date of : 51 Report #: [id number] THIS REPORT FOR: //name// cc: DANO TOMPKINS DO Physician not on staff ~ THIS REPORT FOR: //name// CC: DANO Rodriguez Physician staff DATE OF SERVICE: 05/31/2020 CHIEF COMPLAINT: "The pain is about a 4 today in my hand." HISTORY: The patient is a 64-year-old gentleman who has been followed in the pain clinic. He suffers from reflex sympathetic dystrophy involving his right hand. He used a stapler. After numerous compression of the stapler he developed reflex sympathetic dystrophy, which continues to plague him at this juncture. He experiences swelling in his forearm and hand. He finds his medications are helpful. He also has noted some pain in his right leg. He rates his pain overall as a 4/10. He has returned today for renewal of his medications. He is concerned about the COVID-19 virus. He has not had any problems with his medications. Overall, he feels that they are beneficial. ALLERGIES: No known drug allergies. CURRENT MEDICATIONS: Norvasc 10 mg, potassium, aspirin 81 mg, Cymbalta 60 mg, hydrocodone 7.5 mg 1 p.o. q.i.d., and Lyrica 75 mg. PAIN CLINIC ASSESSMENT AND PQRS: 1. The patient is not being treated for rheumatoid arthritis or osteoarthritis. 2. Height 5 feet 10 inch, weight 212 pounds, BMI is 30. 3. Vital Signs: Blood pressure 149/96, heart rate 93, respiratory rate 18, room air saturation 94%, temperature 97.9. 4. Pain intensity 4/10. 5. Fall history: The patient has not fallen in the last 3 months. 6. Blood thinner. The patient is not on a blood thinning medication. 7. Hypertension. The patient is being treated for hypertension. 8. Opioids greater than 6 weeks. The patient received medication from one source the pain clinic. 9. Risk assessment tool, low for opioid use. 10. Recreational drugs. The patient denies. 11. Tobacco: The patient denies. 12. Alcohol. The patient denies use of alcoholic [place] [address] PAIN MANAGEMENT CONSULTATION Name: DIMITRIOS PAULINO Room: [facility]#: [id number] Admission: 05/31/20 Attend Phys: Roselia Hughes MD Discharge: Date of : 51 Report #: [id number] PHYSICAL EXAMINATION: GENERAL: The patient is a well-developed, well-nourished white male. Appears his stated age. He is alert and oriented x 3. His affect is appropriate. Speech is fluent. HEENT: Normocephalic, atraumatic. Extraocular eye muscles intact. Sclerae nonicteric. Mucous membranes are moist. NECK: Without adenopathy or JVD. The patient is wearing a facial covering. HEART: Regular rate. ABDOMEN: Nontender. LUNGS: Clear to auscultation. 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 There is some swelling in his hands. Dorsum of his hand shows some loss of the ability to see his knuckles because of the swelling. Lower extremity muscle strength judged to be 5/5 for the major muscle groups in the lower extremity. IMPRESSION: 1. Reflex sympathetic dystrophy involving the right hand with swelling. 2. Lumbar radiculopathy with right lower extremity discomfort. 3. Hypertension. 4. Diabetes. 5. Sleep apnea, uses a CPAP machine. RECOMMENDATIONS: We discussed treatment options with the patient. At this juncture, we will continue with his medications. He does not have any problems with it. We have sent to his medications to his pharmacy. He will continue with hydrocodone 7.5 mg one p.o. every 4 hours p.r.n. He will also continue with Lyrica 75 mg in the morning and 150 mg at bedtime. He will also continue with Cymbalta 60 mg daily. He has not shown any signs of addiction. He is aware that people have as a result of overdosing for medications. Keeps his medications in a guarded area. We would like to thank you for letting us participate in his care. We hope he continues to improve. <ELECTRONICALLY SIGNED> By: Roselia Hughes MD 06/07/20 1510 0828 [id number]. Joe Hughes MD /jenn
== END ==
LOC: M.PC 09:37
PROVIDERS: ATTEND Anesthesiology Pain Medicine
DX: G90.50 Complex regional pain syndrome I, unspecified (principal); M54.16 Radiculopathy, lumbar region; I10 Essential (primary) hypertension; E11.9 Type 2 diabetes mellitus without complications; G47.33 Obstructive sleep apnea (adult) (pediatric); Z79.899 Other long term (current) drug therapy

== ENCOUNTER → 2020-07-26 | Outpatient (CLI) | payer OTHER ==
--- NOTE | ~2020-07-26 | PAINCON ---
[address] [address] PAIN MANAGEMENT CONSULTATION Name: DIMITRIOS PAULINO Room: [facility] Morgan#: [id number] Admission: 07/26/20 Attend Phys: Roselia Hughes MD Discharge: Date of : 51 Report #: [id number] THIS REPORT FOR: //name// cc: DANO TOMPKINS DO Physician not on staff ~ CC: DANO Rodriguez Physician staff DATE OF SERVICE: 07/26/2020 CHIEF COMPLAINT: Right arm pain and swelling, right leg pain. HISTORY: The patient is a 64-year-old gentleman, who has been followed in the Pain Clinic. He suffers from reflex sympathetic dystrophy involving his right hand. 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 After numerous compressions with use of stapler, he developed reflex sympathetic dystrophy, which continues to be problematic. He continues to have swelling in his forearm and in his hand. Also notes he has pain today in his right leg. He rates his pain overall today as a 2/10. He has returned today for renewal of his medications. He continues to be sheltering in place as much as possible because of the COVID-19. He notes that the pain can be problematic with prolonged standing, walking, and because of the change in weather and temperature today, he has noted more problems. He has a spinal cord stimulator in place. ALLERGIES: No known drug allergies. CURRENT MEDICATIONS: Norvasc 10 mg, potassium, aspirin 81 mg, Cymbalta 60 mg, hydrocodone 7.5 mg 1 p.o. q.i.d., Lyrica 75 mg. PAIN CLINIC ASSESSMENT AND PQRS: 1. The patient is not being treated for rheumatoid arthritis or osteoarthritis. 2. Height 5 feet 10 inches, weight 213 pounds, BMI 30. 3. Vital signs: Blood pressure 136/73, heart rate 16, room air saturation 96%, respiratory rate is 16, temperature 97.4. 4. Pain intensity: 11/14. 5. Fall history: The patient has not fallen in the last 3 months. 6. Blood thinner: The patient is not on a blood thinning medication. 7. Hypertension: The patient is being treated for hypertension. 8. Opioids greater than 6 weeks: The patient receives medication from one source from Pain Clinic. 9. Risk assessment tool: Low for opioid use. 10. Recreational drug use: The patient denies. 11. Tobacco: The patient denies. 12. Alcohol: The patient denies frequent [place] [address] PAIN MANAGEMENT CONSULTATION Name: DIMITRIOS PAULINO Room: [facility]#: [id number] Admission: 07/26/20 Attend Phys: Roselia Hughes MD Discharge: Date of : 51 Report #: [id number] PHYSICAL EXAMINATION: GENERAL: The patient is a well-developed, well-nourished, white male. He appears his stated age. He is alert and oriented x 3. His affect is appropriate. Speech is fluent. HEENT: Normocephalic, atraumatic. Extraocular eye muscles intact. Sclerae nonicteric. The patient is wearing a facial covering. NECK: Without adenopathy. HEART: Regular rate. LUNGS: Clear. ABDOMEN: Nontender. MUSCULOSKELETAL: Upper extremity muscle strength is judged to be 5/5 on the left side with hot roll laminator strength decreased on the right side because of reflex sympathetic dystrophy type discomfort and swelling. Dorsum of the patient's hand shows lack of visualization of the knuckle because of the swelling. Lower extremity muscle strength is judged to be 5/5 for the major muscle groups in the lower extremity. IMPRESSION: 1. Reflex sympathetic dystrophy involving the right hand with swelling. 2. Lumbar radicular pain on the right side with discomfort. 3. Hypertension. 4. Diabetes. 5. Sleep apnea with use of CPAP machine. RECOMMENDATIONS: We discussed treatment options with the patient. At this juncture, we will continue with his medications. He feels that Cymbalta medication in conjunction with hydrocodone and Lyrica continue to be helpful. He would like to continue with these medications. He is sheltering at home because of the COVID-19. He is aware that medications can become less effective. Opioids can become less helpful because of development of tolerance. Overall, he feels things are going well and would like to continue with his medications. A script for his medications has been provided. He will continue with Cymbalta 60 mg 1 p.o. daily and hydrocodone 7.5 mg one p.o. every 6 hours, a total of 100 tablets for the next 2 months. He will also continue with Lyrica 75 mg 1 tablet p.o. t.i.d. By: [id number]. Joe Hughes MD /jenn
== END ==
LOC: M.PC 09:27
PROVIDERS: ATTEND Anesthesiology Pain Medicine
DX: G90.511 Complex regional pain syndrome I of right upper limb (principal); M54.16 Radiculopathy, lumbar region; I10 Essential (primary) hypertension; E78.5 Hyperlipidemia, unspecified; G47.00 Insomnia, unspecified; Z68.30 Body mass index [BMI] 30.0-30.9, adult; Z79.891 Long term (current) use of opiate analgesic; Z79.899 Other long term (current) drug therapy

== ENCOUNTER → 2020-09-20 | Outpatient (CLI) | payer OTHER | LOC: M.PC 09:24 | PROVIDERS: ATTEND Anesthesiology Pain Medicine | DX: G90.511 Complex regional pain syndrome I of right upper limb (principal); M79.601 Pain in right arm; M79.604 Pain in right leg ==

== ENCOUNTER → 2020-11-15 | Outpatient (CLI) | payer OTHER | LOC: M.PC 09:30 | PROVIDERS: ATTEND Anesthesiology Pain Medicine | DX: M25.441 Effusion, right hand (principal); M62.541 Muscle wasting and atrophy, not elsewhere classified, right hand; I10 Essential (primary) hypertension; E11.9 Type 2 diabetes mellitus without complications; G47.30 Sleep apnea, unspecified; M54.16 Radiculopathy, lumbar region; Z88.8 Allergy status to other drugs, medicaments and biological substances; Z79.899 Other long term (current) drug therapy ==

== ENCOUNTER → 2021-01-10 | Outpatient (CLI) | payer OTHER | LOC: M.PC 09:30 | PROVIDERS: ATTEND Anesthesiology Pain Medicine | DX: G62.9 Polyneuropathy, unspecified (principal); I10 Essential (primary) hypertension; G47.30 Sleep apnea, unspecified; G90.512 Complex regional pain syndrome I of left upper limb; Z88.8 Allergy status to other drugs, medicaments and biological substances; Z79.899 Other long term (current) drug therapy ==

== ENCOUNTER → 2021-03-07 | Outpatient (CLI) | payer OTHER | LOC: M.PC 09:19 | PROVIDERS: ATTEND Anesthesiology Pain Medicine | DX: M54.16 Radiculopathy, lumbar region (principal); E11.9 Type 2 diabetes mellitus without complications; G47.33 Obstructive sleep apnea (adult) (pediatric); Z79.891 Long term (current) use of opiate analgesic; Z79.899 Other long term (current) drug therapy ==

== ENCOUNTER → 2021-05-09 | Outpatient (CLI) | payer OTHER | LOC: M.PC 05-02 10:00 | PROVIDERS: ATTEND Anesthesiology Pain Medicine | DX: M54.16 Radiculopathy, lumbar region (principal); I10 Essential (primary) hypertension; E11.9 Type 2 diabetes mellitus without complications; G47.30 Sleep apnea, unspecified; Z79.899 Other long term (current) drug therapy; Z79.891 Long term (current) use of opiate analgesic ==

== ENCOUNTER → 2021-07-04 | Outpatient (CLI) | payer OTHER | LOC: M.PC 09:51 | PROVIDERS: ATTEND Anesthesiology Pain Medicine | DX: M54.16 Radiculopathy, lumbar region (principal); M79.604 Pain in right leg; I10 Essential (primary) hypertension; E11.9 Type 2 diabetes mellitus without complications; M79.89 Other specified soft tissue disorders; G47.30 Sleep apnea, unspecified; Z79.82 Long term (current) use of aspirin; Z79.899 Other long term (current) drug therapy; Z99.89 Dependence on other enabling machines and devices ==

== ENCOUNTER → 2021-08-27 | Outpatient (CLI) | payer OTHER | LOC: M.PC 09:58 | PROVIDERS: ATTEND Anesthesiology Pain Medicine | DX: M54.16 Radiculopathy, lumbar region (principal); I10 Essential (primary) hypertension; E11.9 Type 2 diabetes mellitus without complications; G47.30 Sleep apnea, unspecified; Z79.82 Long term (current) use of aspirin; Z79.899 Other long term (current) drug therapy; Z79.84 Long term (current) use of oral hypoglycemic drugs ==

== ENCOUNTER → 2021-10-24 | Outpatient (CLI) | payer OTHER ==
[~2021-10-24] MED LIST changes: +PROTONIX 20 MG20 MG PO
== END ==
LOC: M.PC 10-22 10:00
PROVIDERS: ATTEND Anesthesiology Pain Medicine
DX: M54.16 Radiculopathy, lumbar region (principal); I10 Essential (primary) hypertension; E11.9 Type 2 diabetes mellitus without complications; G47.30 Sleep apnea, unspecified; M79.601 Pain in right arm; M79.604 Pain in right leg; M79.89 Other specified soft tissue disorders; Z79.84 Long term (current) use of oral hypoglycemic drugs; Z79.82 Long term (current) use of aspirin; Z79.899 Other long term (current) drug therapy